=== PATIENT | female | born 1940 | race African-American/Black ===

== ENCOUNTER 2016-07-11 16:36 | Inpatient (IN) | payer MEDICARE, MEDICAID ==
[~2016-07-11] VITALS: Ht 167.6 cm; Wt 72.7 kg
[~2016-07-11 16:36] MED LIST: ALBU2.5V13 IH; BRIN8DRO OP; FLUT1DIS3 IH; Isosorb Dinit/Hydralazine Hcl PO; LATA2.5D2 EACHEYE; TIMO10DR30 EACHEYE
[2016-07-11 17:32] LABS: BASOPHILS % 1.3 % (0.0-2.0); EOSINOPHILS % 3.6 % (0.0-5.0); HEMATOCRIT. 36.1 % (36.0-48.0); HEMOGLOBIN. 11.4 g/dL (12.0-16.0); LYMPHOCYTES % 20.1 % (20.0-50.0); MEAN CORPUSCULAR HGB CONC 31.5 g/dL (31.0-37.0); MEAN CORPUSCULAR VOLUME 88.8 fL (81.0-99.0); MEAN PLATELET VOLUME 8.8 fl (7.4-10.4); MONOCYTES % 10.2 % (2.0-8.0); NEUTROPHILS % 64.8 % (40.0-76.0); PLATELET 286 x1000/uL (130-400); RED BLOOD CELL COUNT 4.07 mill/uL (4.2-5.4); RED CELL DISTRIBUTION WIDTH 14.3 % (11.6-14.6); WHITE BLOOD COUNT 10.1 x1000/uL (4.5-11.0)
[2016-07-11 17:35] LABS: DIFFERENTIAL COMMENT 1
[2016-07-11 17:38] LABS: CHLORIDE 102 mEq/L (98-107)
[2016-07-11 17:39] LABS: INDEX HEMOLYSI 1 (1-3); INDEX ICTERIC 1 (1-4); INDEX LIPEMIC 1 (1-3); INR 1.3; PROTHROMBIN TIME 13.6 sec
[2016-07-11 17:41] LABS: ALBUMIN 3.1 g/dL (3.4-5.0); ANION GAP 13; CALCIUM 8.8 mg/dL (8.5-10.1); CARBON DIOXIDE 27 mEq/L (21-32); UREA NITROGEN BLOOD 22 mg/dL (7-21)
[2016-07-11 17:43] LABS: ETHANOL BLOOD < 10 mg/dL
[2016-07-11 17:47] LABS: ALANINE AMINOTRANSFERASE 10 IU/L (13-61); eGFR 41 mL/min (>60)
[2016-07-11 17:49] LABS: NT PRO B-TYPE NATRIURETIC PEP 12924 pg/mL (5-125); TROPONIN I 0.22 ng/mL (0.00-0.04)
[2016-07-11] MEDS ORDERED: FUROSEMIDE 40MG/4ML VIAL IVP ONE (18:45)
[2016-07-11] MEDS ORDERED: ASPIRIN 81MG TABLET PO ONE (18:45)
[2016-07-11 20:06] LABS: CLARITY URINE CLEAR (CLEAR); COLOR URINE YELLOW (YELLOW); GLUCOSE URINE NEGATIVE (NEGATIVE); KETONES URINE NEGATIVE (NEGATIVE); LEUKOCYTE ESTERASE URINE NEGATIVE (NEGATIVE); NITRITE URINE NEGATIVE (NEGATIVE); OCCULT BLOOD URINE NEGATIVE (NEGATIVE); PH URINE 6.5 (4.5-8.0); PROTEIN URINE 1+ (NEGATIVE); SPECIFIC GRAVITY URINE 1.011 (1.005-1.030)
[2016-07-11 20:08] LABS: BACTERIA URINE NONE SEEN; CALCIUM PHOSPHATE CRYSTALS UR NONE SEEN /lpf; RBC URINE 0-2 /hpf (0-2); SQUAMOUS EPITHELIAL CELL URINE NONE SEEN /lpf (RARE/1+); WAXY CASTS URINE NONE SEEN /lpf; WBC URINE NONE SEEN /hpf (0-2); YEAST URINE NONE SEEN
[2016-07-11 20:16] LABS: *AMPHETAMINES SCREEN URINE NEGATIVE (NEGATIVE); *BARBITURATES SCREEN URINE NEGATIVE (NEGATIVE); *BENZODIAZEPINES SCREEN URINE NEGATIVE (NEGATIVE); *COCAINE SCREEN URINE NEGATIVE (NEGATIVE); CANNABINOID URINE SCREEN NEGATIVE (NEGATIVE); ECSTASY MDMA SCREEN URINE NEGATIVE (NEGATIVE); METHADONE URINE SCREEN NEGATIVE (NEGATIVE); OPIATES URINE SCREEN NEGATIVE (NEGATIVE); PHENCYCLIDINE URINE SCREEN NEGATIVE (NEGATIVE)
[2016-07-11 21:25] VITALS: BP 143/91
[2016-07-11 21:49] VITALS: BP 143/91
[2016-07-11] MEDS ORDERED: DEXTROSE 50% WATER 50ML SYRINGE IV PRN (23:15)
[2016-07-12] VITALS: BP 143/77
[2016-07-12 04:00] VITALS: BP 129/66
[2016-07-12 05:44] LABS: ALANINE AMINOTRANSFERASE 10 IU/L (13-61); ALBUMIN 2.9 g/dL (3.4-5.0); ANION GAP 13; CALCIUM 9.1 mg/dL (8.5-10.1); CARBON DIOXIDE 27 mEq/L (21-32); CHLORIDE 104 mEq/L (98-107); HDL CHOLESTEROL 33 mg/dL (40-59); INDEX HEMOLYSI 1 (1-3); INDEX ICTERIC 1 (1-4); INDEX LIPEMIC 1 (1-3); LDL CHOLESTEROL 88 mg/dL (5-100); TRIGLYCERIDE 96 mg/dL (0-150); UREA NITROGEN BLOOD 21 mg/dL (7-21); eGFR 48 mL/min (>60)
[2016-07-12 05:59] LABS: BASOPHILS % 0.7 % (0.0-2.0); EOSINOPHILS % 5.5 % (0.0-5.0); HEMOGLOBIN. 11.2 g/dL (12.0-16.0); LYMPHOCYTES % 24.9 % (20.0-50.0); MEAN CORPUSCULAR HEMOGLOBIN 28.6 pg (28.0-32.0); MEAN CORPUSCULAR VOLUME 89.1 fL (81.0-99.0); MONOCYTES % 12.5 % (2.0-8.0); NEUTROPHILS % 56.4 % (40.0-76.0); PLATELET 279 x1000/uL (130-400); RED BLOOD CELL COUNT 3.93 mill/uL (4.2-5.4); RED CELL DISTRIBUTION WIDTH 14.4 % (11.6-14.6); WHITE BLOOD COUNT 8.2 x1000/uL (4.5-11.0)
[2016-07-12] MEDS: BLOOD SUGAR DIAGNOSTIC STRIP TEST SCH ×4 (06:02→21:42)
[2016-07-12] MEDS: INSULIN LISPRO 100 UNITS/ML SUBCUT SCH ×4 (06:54→21:42)
[2016-07-12 08:00] VITALS: BP 131/72
[2016-07-12] MEDS: CARVEDILOL 12.5MG TABLET PO SCH ×2 (09:20→21:40)
[2016-07-12] MEDS: ASPIRIN 325MG EC TABLET PO SCH (09:20)
[2016-07-12] MEDS: DOCUSATE SODIUM 100MG CAPSULE PO SCH ×2 (09:20→17:03)
[2016-07-12] MEDS: FUROSEMIDE 40MG TABLET PO SCH (09:20)
[2016-07-12] MEDS: ISOSORB DINIT/HYDRALAZINE HCL 20/37.5MG TABLET PO SCH ×2 (09:20→21:39)
[2016-07-12] MEDS: ENOXAPARIN 30MG/0.3ML SYR SUBCUT SCH (09:20)
[2016-07-12] MEDS: POTASSIUM CHLORIDE 10MEQ TABLET SR PO SCH (09:20)
[2016-07-12] MEDS: TIMOLOL MALEATE 0.5% OPHTH DROPS 5ML EACHEYE SCH ×2 (09:21→16:58)
[2016-07-12] MEDS: BRIMONIDINE 0.2% OPHTH DROPS 5ML BOTHEYE SCH ×3 (09:21→16:58)
[2016-07-12] MEDS: DORZOLAMIDE 2% OPHTH 10 ML BOTTLE BOTHEYE SCH ×3 (09:21→16:58)
[2016-07-12 12:00] VITALS: BP 106/60
[2016-07-12 16:00] VITALS: BP 132/77
[2016-07-12 20:00] VITALS: BP 126/69
[2016-07-12] MEDS: LATANOPROST 0.005% OPHTH DROPS 2.5ML EACHEYE SCH (21:00)
[2016-07-12] MEDS: ATORVASTATIN CALCIUM 10MG TABLET PO SCH (21:40)
[2016-07-12] MEDS: INSULIN DETEMIR UD 100 UNITS/ML SYR SUBCUT SCH (21:50)
[2016-07-13] VITALS: BP 118/66
[2016-07-13 04:00] VITALS: BP 133/75
[2016-07-13] MEDS: INSULIN LISPRO 100 UNITS/ML SUBCUT SCH ×4 (07:15→20:40)
[2016-07-13] MEDS: BLOOD SUGAR DIAGNOSTIC STRIP TEST SCH ×4 (07:21→20:40)
[2016-07-13 08:00] VITALS: BP 127/72
[2016-07-13] MEDS: DORZOLAMIDE 2% OPHTH 10 ML BOTTLE BOTHEYE SCH ×3 (10:36→18:02)
[2016-07-13] MEDS: ASPIRIN 325MG EC TABLET PO SCH (10:38)
[2016-07-13] MEDS: CARVEDILOL 12.5MG TABLET PO SCH ×2 (10:38→20:39)
[2016-07-13] MEDS: POTASSIUM CHLORIDE 10MEQ TABLET SR PO SCH (10:39)
[2016-07-13] MEDS: DOCUSATE SODIUM 100MG CAPSULE PO SCH ×2 (10:39→16:24)
[2016-07-13] MEDS: FUROSEMIDE 40MG TABLET PO SCH (10:39)
[2016-07-13] MEDS: ISOSORB DINIT/HYDRALAZINE HCL 20/37.5MG TABLET PO SCH ×2 (10:39→20:39)
[2016-07-13] MEDS: TIMOLOL MALEATE 0.5% OPHTH DROPS 5ML EACHEYE SCH ×2 (10:41→18:02)
[2016-07-13] MEDS: ENOXAPARIN 30MG/0.3ML SYR SUBCUT SCH (10:41)
[2016-07-13] MEDS: BRIMONIDINE 0.2% OPHTH DROPS 5ML BOTHEYE SCH ×3 (10:45→18:02)
[2016-07-13 12:00] VITALS: BP 124/71
[2016-07-13 16:00] VITALS: BP 116/74
[2016-07-13 20:00] VITALS: BP 134/73
[2016-07-13] MEDS: ATORVASTATIN CALCIUM 10MG TABLET PO SCH (20:39)
[2016-07-13] MEDS: LATANOPROST 0.005% OPHTH DROPS 2.5ML EACHEYE SCH (22:33)
[2016-07-13] MEDS: INSULIN DETEMIR UD 100 UNITS/ML SYR SUBCUT SCH (22:37)
[2016-07-14] VITALS: BP 123/66
[2016-07-14 04:00] VITALS: BP 116/67
[2016-07-14] MEDS: BLOOD SUGAR DIAGNOSTIC STRIP TEST SCH ×4 (05:44→21:52)
[2016-07-14] MEDS: INSULIN LISPRO 100 UNITS/ML SUBCUT SCH ×4 (06:20→21:00)
[2016-07-14 08:00] VITALS: BP 120/62
[2016-07-14] MEDS: ASPIRIN 325MG EC TABLET PO SCH (08:44)
[2016-07-14] MEDS: TIMOLOL MALEATE 0.5% OPHTH DROPS 5ML EACHEYE SCH ×2 (08:44→17:14)
[2016-07-14] MEDS: DORZOLAMIDE 2% OPHTH 10 ML BOTTLE BOTHEYE SCH ×3 (08:44→17:14)
[2016-07-14] MEDS: POTASSIUM CHLORIDE 10MEQ TABLET SR PO SCH (08:45)
[2016-07-14] MEDS: FUROSEMIDE 40MG TABLET PO SCH (08:45)
[2016-07-14] MEDS: ENOXAPARIN 30MG/0.3ML SYR SUBCUT SCH (08:46)
[2016-07-14] MEDS: DOCUSATE SODIUM 100MG CAPSULE PO SCH ×2 (08:46→17:00)
[2016-07-14] MEDS: BRIMONIDINE 0.2% OPHTH DROPS 5ML BOTHEYE SCH ×3 (08:49→17:00)
[2016-07-14] MEDS: CARVEDILOL 12.5MG TABLET PO SCH ×2 (08:49→21:44)
[2016-07-14] MEDS: ISOSORB DINIT/HYDRALAZINE HCL 20/37.5MG TABLET PO SCH ×2 (08:49→21:43)
[2016-07-14] MEDS: ACETAMINOPHEN 325MG TABLET PO PRN ×2 (09:48→17:44)
[2016-07-14 12:00] VITALS: BP 121/76
[2016-07-14 16:00] VITALS: BP 112/56
[2016-07-14] MEDS ORDERED: AMIODARONE HCL 200 MG TABLET PO ONE (19:15)
[2016-07-14 20:00] VITALS: BP 118/67
[2016-07-14] MEDS: ATORVASTATIN CALCIUM 10MG TABLET PO SCH (21:44)
[2016-07-14] MEDS: LATANOPROST 0.005% OPHTH DROPS 2.5ML EACHEYE SCH (21:46)
[2016-07-14] MEDS: INSULIN DETEMIR UD 100 UNITS/ML SYR SUBCUT SCH (21:52)
[2016-07-14 23:29] LABS: MAGNESIUM 2.1 mg/dL (1.8-2.4)
[2016-07-15] VITALS: BP 119/70
[2016-07-15 04:00] VITALS: BP 126/69
[2016-07-15] MEDS: INSULIN LISPRO 100 UNITS/ML SUBCUT SCH ×4 (05:38→21:26)
[2016-07-15] MEDS: BLOOD SUGAR DIAGNOSTIC STRIP TEST SCH ×4 (05:39→21:00)
[2016-07-15 08:00] VITALS: BP_SYST 114; BP_SYST 120; BP_DIAS 60; BP_DIAS 73
[2016-07-15] MEDS: DOCUSATE SODIUM 100MG CAPSULE PO SCH ×2 (09:00→17:00)
[2016-07-15] MEDS ORDERED: AMIODARONE HCL 200 MG TABLET PO SCH ×2 (09:00)
[2016-07-15] MEDS: ENOXAPARIN 30MG/0.3ML SYR SUBCUT SCH (09:37)
[2016-07-15] MEDS: ISOSORB DINIT/HYDRALAZINE HCL 20/37.5MG TABLET PO SCH ×2 (09:37→21:24)
[2016-07-15] MEDS: ASPIRIN 325MG EC TABLET PO SCH (09:37)
[2016-07-15] MEDS: POTASSIUM CHLORIDE 10MEQ TABLET SR PO SCH (09:37)
[2016-07-15] MEDS: FUROSEMIDE 40MG TABLET PO SCH (09:37)
[2016-07-15] MEDS: CARVEDILOL 12.5MG TABLET PO SCH ×2 (09:38→21:24)
[2016-07-15] MEDS: DORZOLAMIDE 2% OPHTH 10 ML BOTTLE BOTHEYE SCH ×3 (09:39→17:22)
[2016-07-15] MEDS: BRIMONIDINE 0.2% OPHTH DROPS 5ML BOTHEYE SCH ×3 (09:39→17:00)
[2016-07-15] MEDS: TIMOLOL MALEATE 0.5% OPHTH DROPS 5ML EACHEYE SCH ×2 (09:41→17:22)
[2016-07-15 12:00] VITALS: BP 120/73
[2016-07-15 16:00] VITALS: BP 125/66
[2016-07-15 20:00] VITALS: BP 119/65
[2016-07-15] MEDS: ATORVASTATIN CALCIUM 10MG TABLET PO SCH (21:24)
[2016-07-15] MEDS: LATANOPROST 0.005% OPHTH DROPS 2.5ML EACHEYE SCH (21:26)
[2016-07-15] MEDS: INSULIN DETEMIR UD 100 UNITS/ML SYR SUBCUT SCH (21:26)
[2016-07-16 01:04] VITALS: BP 125/68
[2016-07-16 04:00] VITALS: BP 127/71
[2016-07-16] MEDS: BLOOD SUGAR DIAGNOSTIC STRIP TEST SCH ×4 (05:46→20:56)
[2016-07-16] MEDS: INSULIN LISPRO 100 UNITS/ML SUBCUT SCH ×4 (05:46→21:02)
[2016-07-16 05:58] LABS: HEMATOCRIT 30.3 % (36.0-48.0); HEMOGLOBIN 9.7 g/dL (12.0-16.0); MEAN CORPUSCULAR HGB CONC 32.1 g/dL (31.0-37.0); MEAN CORPUSCULAR VOLUME 87.2 fL (81.0-99.0); PLATELET 258 x1000/uL (130-400); RED BLOOD CELL COUNT 3.48 mill/uL (4.2-5.4); RED CELL DISTRIBUTION WIDTH 14.5 % (11.6-14.6); WHITE BLOOD COUNT 8.5 x1000/uL (4.5-11.0)
[2016-07-16 08:00] VITALS: BP 121/67
[2016-07-16] MEDS: DOCUSATE SODIUM 100MG CAPSULE PO SCH ×2 (08:43→16:56)
[2016-07-16] MEDS: TIMOLOL MALEATE 0.5% OPHTH DROPS 5ML EACHEYE SCH ×2 (08:55→17:00)
[2016-07-16] MEDS: DORZOLAMIDE 2% OPHTH 10 ML BOTTLE BOTHEYE SCH ×3 (08:55→17:00)
[2016-07-16] MEDS: BRIMONIDINE 0.2% OPHTH DROPS 5ML BOTHEYE SCH ×3 (08:56→16:56)
[2016-07-16] MEDS: CARVEDILOL 12.5MG TABLET PO SCH ×2 (08:57→20:38)
[2016-07-16] MEDS: ASPIRIN 325MG EC TABLET PO SCH (08:57)
[2016-07-16] MEDS: FUROSEMIDE 40MG TABLET PO SCH (08:57)
[2016-07-16] MEDS: POTASSIUM CHLORIDE 10MEQ TABLET SR PO SCH (08:57)
[2016-07-16] MEDS: ENOXAPARIN 30MG/0.3ML SYR SUBCUT SCH (08:58)
[2016-07-16 12:00] VITALS: BP 119/68
[2016-07-16] MEDS: ISOSORB DINIT/HYDRALAZINE HCL 20/37.5MG TABLET PO SCH ×2 (13:01→20:53)
[2016-07-16 16:00] VITALS: BP 108/55
[2016-07-16 20:00] VITALS: BP 112/64
[2016-07-16] MEDS: LATANOPROST 0.005% OPHTH DROPS 2.5ML EACHEYE SCH (20:53)
[2016-07-16] MEDS: ATORVASTATIN CALCIUM 10MG TABLET PO SCH (20:53)
[2016-07-16] MEDS: INSULIN DETEMIR UD 100 UNITS/ML SYR SUBCUT SCH (21:02)
[2016-07-17] VITALS: BP 123/72
[2016-07-17 04:00] VITALS: BP 105/57
[2016-07-17] MEDS: BLOOD SUGAR DIAGNOSTIC STRIP TEST SCH ×4 (06:19→20:28)
[2016-07-17] MEDS: INSULIN LISPRO 100 UNITS/ML SUBCUT SCH ×4 (06:19→20:28)
[2016-07-17 08:00] VITALS: BP 129/72
[2016-07-17] MEDS: BRIMONIDINE 0.2% OPHTH DROPS 5ML BOTHEYE SCH ×3 (09:00→17:00)
[2016-07-17] MEDS: DOCUSATE SODIUM 100MG CAPSULE PO SCH ×2 (09:00→17:00)
[2016-07-17] MEDS: ASPIRIN 325MG EC TABLET PO SCH (09:30)
[2016-07-17] MEDS: ISOSORB DINIT/HYDRALAZINE HCL 20/37.5MG TABLET PO SCH ×2 (09:31→20:20)
[2016-07-17] MEDS: POTASSIUM CHLORIDE 10MEQ TABLET SR PO SCH (09:31)
[2016-07-17] MEDS: CARVEDILOL 12.5MG TABLET PO SCH ×2 (09:31→20:18)
[2016-07-17] MEDS: FUROSEMIDE 40MG TABLET PO SCH (09:31)
[2016-07-17] MEDS: ENOXAPARIN 30MG/0.3ML SYR SUBCUT SCH (09:33)
[2016-07-17] MEDS: TIMOLOL MALEATE 0.5% OPHTH DROPS 5ML EACHEYE SCH ×2 (09:36→19:24)
[2016-07-17] MEDS: DORZOLAMIDE 2% OPHTH 10 ML BOTTLE BOTHEYE SCH ×3 (09:36→19:24)
[2016-07-17 12:00] VITALS: BP 125/71
[2016-07-17 16:00] VITALS: BP 119/71
[2016-07-17 20:00] VITALS: BP 118/70
[2016-07-17] MEDS ORDERED: DIPHENHYDRAMINE 50MG CAPSULE PO PRN (20:00)
[2016-07-17] MEDS ORDERED: DIPHENHYDRAMINE 50MG/ML VIAL IV NR (20:00)
[2016-07-17] MEDS: ATORVASTATIN CALCIUM 10MG TABLET PO SCH (20:19)
[2016-07-17] MEDS: LATANOPROST 0.005% OPHTH DROPS 2.5ML EACHEYE SCH (20:20)
[2016-07-17] MEDS: INSULIN DETEMIR UD 100 UNITS/ML SYR SUBCUT SCH (21:19)
[2016-07-18] VITALS: BP 121/71
[2016-07-18 04:00] VITALS: BP 121/69
[2016-07-18] MEDS: BLOOD SUGAR DIAGNOSTIC STRIP TEST SCH ×2 (06:15→11:21)
[2016-07-18] MEDS: INSULIN LISPRO 100 UNITS/ML SUBCUT SCH ×2 (06:15→11:21)
[2016-07-18 08:00] VITALS: BP 128/77
[2016-07-18] MEDS: DOCUSATE SODIUM 100MG CAPSULE PO SCH (09:00)
[2016-07-18] MEDS: ENOXAPARIN 30MG/0.3ML SYR SUBCUT SCH (09:35)
[2016-07-18] MEDS: FUROSEMIDE 40MG TABLET PO SCH (09:35)
[2016-07-18] MEDS: POTASSIUM CHLORIDE 10MEQ TABLET SR PO SCH (09:35)
[2016-07-18] MEDS: ASPIRIN 325MG EC TABLET PO SCH (09:35)
[2016-07-18] MEDS: ISOSORB DINIT/HYDRALAZINE HCL 20/37.5MG TABLET PO SCH (09:36)
[2016-07-18] MEDS: CARVEDILOL 12.5MG TABLET PO SCH (09:36)
[2016-07-18] MEDS: DORZOLAMIDE 2% OPHTH 10 ML BOTTLE BOTHEYE SCH ×2 (09:37→13:00)
[2016-07-18] MEDS: TIMOLOL MALEATE 0.5% OPHTH DROPS 5ML EACHEYE SCH (09:37)
[2016-07-18] MEDS: BRIMONIDINE 0.2% OPHTH DROPS 5ML BOTHEYE SCH ×2 (09:37→13:00)
[2016-07-18] MEDS ORDERED: AMIO200T39 PO (11:44)
[2016-07-18] MEDS ORDERED: ASPI-867 PO (11:44)
[2016-07-18 13:39] VITALS: BP 121/70
== END 2016-07-18 16:05 | disposition home or self-care (01) | DRG 64 ==
LOC: ER 16:48 → 5WST 19:20
PROVIDERS: ADMIT Internal Medicine Critical Care Medicine; ATTEND Internal Medicine Critical Care Medicine
PROC: 02HV33Z Insertion of Infusion Device into Superior Vena Cava, Percutaneous Approach (ICD-10-PCS; principal; 2016-07-15)
PROC: B5181ZA Fluoroscopy of Superior Vena Cava using Low Osmolar Contrast, Guidance (ICD-10-PCS; 2016-07-15)
DX: I63.139 Cerebral infarction due to embolism of unspecified carotid artery (principal); I50.43 Acute on chronic combined systolic (congestive) and diastolic (congestive) heart failure; I13.0 Hypertensive heart and chronic kidney disease with heart failure and stage 1 through stage 4 chronic kidney disease, or unspecified chronic kidney disease; J98.11 Atelectasis; I42.0 Dilated cardiomyopathy; I95.9 Hypotension, unspecified; E11.21 Type 2 diabetes mellitus with diabetic nephropathy; J44.9 Chronic obstructive pulmonary disease, unspecified; E11.22 Type 2 diabetes mellitus with diabetic chronic kidney disease; N18.3 Chronic kidney disease, stage 3 (moderate); M19.90 Unspecified osteoarthritis, unspecified site; H40.9 Unspecified glaucoma; I49.9 Cardiac arrhythmia, unspecified; K21.9 Gastro-esophageal reflux disease without esophagitis; Z79.4 Long term (current) use of insulin; Z95.810 Presence of automatic (implantable) cardiac defibrillator; Z88.0 Allergy status to penicillin; Z88.6 Allergy status to analgesic agent; Z88.5 Allergy status to narcotic agent; Z88.8 Allergy status to other drugs, medicaments and biological substances
CPT/HCPCS: 36415; 36569; 70450; 71010; 76937; 77001; 80048; 80053; 80061; 80305; 81001; 82962; 83036; 83735; 83880; 84443; 84484; 85025; 85027; 85610; 93005; 93880; 97112; 97116; 97162; 97166; 99285; C1725; C1893; G0482; J1200; J1650; J1815; J1940

== ENCOUNTER 2016-08-10 13:39 | Inpatient (IN) | payer MEDICARE, OTHER ==
[~2016-08-10] VITALS: Ht 167.6 cm; Wt 69.9 kg
[2016-08-10 12:00] VITALS: BP 145/93
[~2016-08-10 13:39] MED LIST changes: +AMIO200T39 PO; +ASPI-867 PO
[2016-08-10] MEDS ORDERED: LEVEMIR SUBCUT (15:04)
[2016-08-10] MEDS ORDERED: ROSU10TA PO (15:09)
[2016-08-10] MEDS ORDERED: XALAO EACHEYE (15:09)
[2016-08-10] MEDS ORDERED: BIDIL PO (15:09)
[2016-08-10] MEDS ORDERED: COR12 PO (15:09)
[2016-08-10] MEDS ORDERED: ALPHAGAN BOTHEYE (15:19)
[2016-08-10] MEDS ORDERED: FURO-151 PO (15:19)
[2016-08-10] MEDS ORDERED: TRUSOPT BOTHEYE (15:19)
[2016-08-10] MEDS ORDERED: TIMO10DR30 EACHEYE (15:19)
[2016-08-10] MEDS ORDERED: ENTRESTO PO (15:19)
[2016-08-10] MEDS ORDERED: POTASSIUM PO (15:19)
[2016-08-10] MEDS ORDERED: DOCU-138 PO (15:19)
[2016-08-10 16:00] VITALS: BP 135/76
[2016-08-10] MEDS ORDERED: MAGNESIUM/ALUMINUM HYDROXIDE/SIMETHICONE 30ML UDC PO PRN (16:45)
[2016-08-10] MEDS ORDERED: ACETAMINOPHEN 325MG TABLET PO PRN (16:45)
[2016-08-10] MEDS ORDERED: DIPHENHYDRAMINE 50MG/ML VIAL IV PRN (16:45)
[2016-08-10] MEDS ORDERED: CLONIDINE 0.1MG TABLET PO PRN (16:45)
[2016-08-10] MEDS ORDERED: DEXTROSE 50% WATER 50ML SYRINGE IV PRN (16:45)
[2016-08-10] MEDS ORDERED: IPRATROPIUM/ALBUTEROL 0.5-3(2.5)MG/3ML NEB INH PRN (16:45)
[2016-08-10] MEDS ORDERED: ONDANSETRON HCL 4MG/2ML VIAL IV PRN (16:45)
[2016-08-10 17:00] VITALS: BP 145/93
[2016-08-10] MEDS ORDERED: ALPHAGAN BOTHEYE SCH (17:00)
[2016-08-10] MEDS: BLOOD SUGAR DIAGNOSTIC STRIP TEST SCH ×2 (17:20→21:12)
[2016-08-10] MEDS ORDERED: MAGNESIUM HYDROXIDE 400MG/5ML 30ML UDC PO PRN (17:30)
[2016-08-10 17:46] LABS: ALANINE AMINOTRANSFERASE 16 IU/L (13-61); ALBUMIN 3.1 g/dL (3.4-5.0); ANION GAP 16; BASOPHILS % 0.7 % (0.0-2.0); CALCIUM 9.1 mg/dL (8.5-10.1); CARBON DIOXIDE 23 mEq/L (21-32); CHLORIDE 101 mEq/L (98-107); EOSINOPHILS % 2.3 % (0.0-5.0); HEMATOCRIT. 36.2 % (36.0-48.0); HEMOGLOBIN. 11.6 g/dL (12.0-16.0); INDEX HEMOLYSI 1 (1-3); INDEX ICTERIC 1 (1-4); INDEX LIPEMIC 1 (1-3); LYMPHOCYTES % 25.4 % (20.0-50.0); MEAN CORPUSCULAR HEMOGLOBIN 28.1 pg (28.0-32.0); MEAN CORPUSCULAR HGB CONC 31.9 g/dL (31.0-37.0); MEAN PLATELET VOLUME 9.8 fl (7.4-10.4); MONOCYTES % 9.8 % (2.0-8.0); NEUTROPHILS % 61.8 % (40.0-76.0); PLATELET 143 x1000/uL (130-400); RED BLOOD CELL COUNT 4.11 mill/uL (4.2-5.4); RED CELL DISTRIBUTION WIDTH 15.8 % (11.6-14.6); UREA NITROGEN BLOOD 29 mg/dL (7-21); eGFR 29 mL/min (>60)
[2016-08-10] MEDS: INSULIN LISPRO 100 UNITS/ML SUBCUT SCH ×2 (17:50→21:13)
[2016-08-10 20:00] VITALS: BP 142/81
[2016-08-10] MEDS ORDERED: MEDICATION NOT ON FORMULARY EA (Rosuvastatin Calcium (Crestor) 1 TAB) PO SCH (21:00)
[2016-08-10] MEDS: AMIODARONE HCL 200 MG TABLET PO SCH (21:04)
[2016-08-10] MEDS: ATORVASTATIN CALCIUM 20MG TABLET PO SCH (21:04)
[2016-08-10] MEDS: LATANOPROST 0.005% OPHTH DROPS 2.5ML EACHEYE SCH (21:05)
[2016-08-10] MEDS: CARVEDILOL 12.5MG TABLET PO SCH (21:05)
[2016-08-10] MEDS: SODIUM CHLORIDE 0.9% INJ 3ML FLUSH IVF SCH (21:05)
[2016-08-10] MEDS: TIMOLOL MALEATE 0.5% OPHTH DROPS 5ML EACHEYE SCH (21:05)
[2016-08-10] MEDS: DOCUSATE SODIUM 100MG CAPSULE PO SCH (21:05)
[2016-08-10] MEDS: ENTRESTO PO SCH (21:06)
[2016-08-10] MEDS: INSULIN DETEMIR UD 100 UNITS/ML SYR SUBCUT SCH (21:14)
[2016-08-10 21:30] LABS: CLARITY URINE TURBID (CLEAR); COLOR URINE DARK YELLOW (YELLOW); GLUCOSE URINE NEGATIVE (NEGATIVE); KETONES URINE TRACE (NEGATIVE); LEUKOCYTE ESTERASE URINE 3+ (NEGATIVE); NITRITE URINE NEGATIVE (NEGATIVE); OCCULT BLOOD URINE 3+ (NEGATIVE); PH URINE 5.5 (4.5-8.0); PROTEIN URINE 2+ (NEGATIVE); SPECIFIC GRAVITY URINE 1.017 (1.005-1.030)
[2016-08-10 21:50] LABS: BACTERIA URINE 2+; RBC URINE TNTC /hpf (0-2); SQUAMOUS EPITHELIAL CELL URINE 1+ /lpf (RARE/1+); WBC URINE TNTC /hpf (0-2)
[2016-08-10] MEDS ORDERED: ISOSORB DINIT PO SCH (22:00)
[2016-08-10] MEDS ORDERED: [UNRECOGNIZED DRUG - OTHER] PO SCH (22:00)
[2016-08-10] MEDS: DORZOLAMIDE 2% OPHTH 10 ML BOTTLE BOTHEYE SCH (22:18)
[2016-08-11] VITALS: BP 134/84
[2016-08-11 04:00] VITALS: BP 130/81
[2016-08-11] MEDS: SODIUM CHLORIDE 0.9% INJ 3ML FLUSH IVF SCH ×3 (06:05→21:10)
[2016-08-11] MEDS: BLOOD SUGAR DIAGNOSTIC STRIP TEST SCH ×4 (06:29→21:10)
[2016-08-11] MEDS: INSULIN LISPRO 100 UNITS/ML SUBCUT SCH ×4 (07:50→22:21)
[2016-08-11 08:00] VITALS: BP 120/70
[2016-08-11] MEDS: ISOSORB DINIT/HYDRALAZINE HCL 20/37.5MG TABLET PO SCH ×2 (09:00→17:49)
[2016-08-11] MEDS ORDERED: FUROSEMIDE 40MG TABLET PO SCH (09:00)
[2016-08-11] MEDS: DOCUSATE SODIUM 100MG CAPSULE PO SCH ×2 (09:00→17:00)
[2016-08-11] MEDS: POTASSIUM CHLORIDE 10MEQ TABLET SR PO SCH (09:40)
[2016-08-11] MEDS: AMIODARONE HCL 200 MG TABLET PO SCH ×2 (09:40→21:07)
[2016-08-11] MEDS: ENTRESTO PO SCH ×2 (09:41→21:08)
[2016-08-11] MEDS: DORZOLAMIDE 2% OPHTH 10 ML BOTTLE BOTHEYE SCH ×3 (09:41→21:09)
[2016-08-11] MEDS: CARVEDILOL 12.5MG TABLET PO SCH ×2 (09:41→21:08)
[2016-08-11] MEDS: TIMOLOL MALEATE 0.5% OPHTH DROPS 5ML EACHEYE SCH ×2 (09:42→21:09)
[2016-08-11] MEDS: ENOXAPARIN 30MG/0.3ML SYR SUBCUT SCH (09:43)
[2016-08-11] MEDS: ASPIRIN 325MG EC TABLET PO SCH (09:47)
[2016-08-11 12:11] VITALS: BP 132/79
[2016-08-11] MEDS ORDERED: GENTAMICIN 120MG PREMIX 100 ML IV NR (13:30)
[2016-08-11] MEDS: FUROSEMIDE 40MG/4ML VIAL IVP SCH (13:57)
[2016-08-11 16:00] VITALS: BP 133/80
[2016-08-11 20:00] VITALS: BP 112/67
[2016-08-11] MEDS: ZOLPIDEM TARTRATE 5MG TABLET PO PRN (21:07)
[2016-08-11] MEDS: ATORVASTATIN CALCIUM 20MG TABLET PO SCH (21:07)
[2016-08-11] MEDS: LATANOPROST 0.005% OPHTH DROPS 2.5ML EACHEYE SCH (21:08)
[2016-08-11] MEDS: INSULIN DETEMIR UD 100 UNITS/ML SYR SUBCUT SCH (22:19)
[2016-08-12] VITALS: BP 108/66
[2016-08-12 04:00] VITALS: BP 116/68
[2016-08-12] MEDS: SODIUM CHLORIDE 0.9% INJ 3ML FLUSH IVF SCH ×3 (05:57→22:08)
[2016-08-12] MEDS: BLOOD SUGAR DIAGNOSTIC STRIP TEST SCH ×4 (05:57→21:00)
[2016-08-12 08:00] VITALS: BP 105/56
[2016-08-12] MEDS: DORZOLAMIDE 2% OPHTH 10 ML BOTTLE BOTHEYE SCH ×3 (08:28→17:52)
[2016-08-12] MEDS: TIMOLOL MALEATE 0.5% OPHTH DROPS 5ML EACHEYE SCH ×2 (08:28→22:02)
[2016-08-12] MEDS: ENOXAPARIN 30MG/0.3ML SYR SUBCUT SCH (08:29)
[2016-08-12] MEDS: FUROSEMIDE 40MG/4ML VIAL IVP SCH (08:35)
[2016-08-12] MEDS: ISOSORB DINIT/HYDRALAZINE HCL 20/37.5MG TABLET PO SCH ×2 (08:35→17:52)
[2016-08-12] MEDS: ASPIRIN 325MG EC TABLET PO SCH (08:35)
[2016-08-12] MEDS: ENTRESTO PO SCH ×2 (08:35→22:04)
[2016-08-12] MEDS: AMIODARONE HCL 200 MG TABLET PO SCH ×2 (08:36→22:04)
[2016-08-12] MEDS: CARVEDILOL 12.5MG TABLET PO SCH ×2 (08:36→22:03)
[2016-08-12] MEDS: POTASSIUM CHLORIDE 10MEQ TABLET SR PO SCH (08:36)
[2016-08-12] MEDS: DOCUSATE SODIUM 100MG CAPSULE PO SCH ×2 (08:36→17:52)
[2016-08-12] MEDS: INSULIN LISPRO 100 UNITS/ML SUBCUT SCH ×4 (08:46→22:08)
[2016-08-12 12:00] VITALS: BP 119/70
[2016-08-12] MEDS: GENTAMICIN 120MG PREMIX 100 ML IV SCH (12:00)
[2016-08-12] MEDS ORDERED: IPRATROPIUM/ALBUTEROL 0.5-3(2.5)MG/3ML NEB HHN PRN (15:30)
[2016-08-12 16:00] VITALS: BP 128/79
[2016-08-12 16:54] LABS: CALCIUM 8.9 mg/dL (8.5-10.1)
[2016-08-12 20:00] VITALS: BP 115/64
[2016-08-12] MEDS: BUDESONIDE 0.5MG/2ML NEB HHN SCH (20:12)
[2016-08-12] MEDS: IPRATROPIUM/ALBUTEROL 0.5-3(2.5)MG/3ML NEB HHN SCH (20:12)
[2016-08-12] MEDS: LATANOPROST 0.005% OPHTH DROPS 2.5ML EACHEYE SCH (21:59)
[2016-08-12] MEDS: ZOLPIDEM TARTRATE 5MG TABLET PO PRN (22:04)
[2016-08-12] MEDS: ATORVASTATIN CALCIUM 20MG TABLET PO SCH (22:04)
[2016-08-12] MEDS: BRIMONIDINE 0.2% OPHTH DROPS 5ML BOTHEYE SCH (22:51)
[2016-08-13] VITALS: BP 108/58
[2016-08-13] MEDS: IPRATROPIUM/ALBUTEROL 0.5-3(2.5)MG/3ML NEB HHN SCH ×4 (03:11→21:03)
[2016-08-13 04:00] VITALS: BP 102/55
[2016-08-13] MEDS: SODIUM CHLORIDE 0.9% INJ 3ML FLUSH IVF SCH ×3 (06:00→21:57)
[2016-08-13] MEDS: BLOOD SUGAR DIAGNOSTIC STRIP TEST SCH ×4 (06:16→21:56)
[2016-08-13] MEDS: INSULIN LISPRO 100 UNITS/ML SUBCUT SCH ×4 (06:30→21:00)
[2016-08-13 08:00] VITALS: BP 112/55
[2016-08-13] MEDS: BUDESONIDE 0.5MG/2ML NEB HHN SCH ×2 (08:04→21:03)
[2016-08-13] MEDS: ASPIRIN 325MG EC TABLET PO SCH (08:50)
[2016-08-13] MEDS: POTASSIUM CHLORIDE 10MEQ TABLET SR PO SCH (08:50)
[2016-08-13] MEDS: TIMOLOL MALEATE 0.5% OPHTH DROPS 5ML EACHEYE SCH ×2 (08:50→21:57)
[2016-08-13] MEDS: AMIODARONE HCL 200 MG TABLET PO SCH ×2 (08:50→21:56)
[2016-08-13] MEDS: DORZOLAMIDE 2% OPHTH 10 ML BOTTLE BOTHEYE SCH ×3 (08:50→17:58)
[2016-08-13] MEDS: ENOXAPARIN 30MG/0.3ML SYR SUBCUT SCH (08:51)
[2016-08-13] MEDS: FUROSEMIDE 40MG/4ML VIAL IVP SCH (08:51)
[2016-08-13] MEDS: DOCUSATE SODIUM 100MG CAPSULE PO SCH ×2 (08:58→18:01)
[2016-08-13] MEDS: ENTRESTO PO SCH ×2 (09:00→21:56)
[2016-08-13] MEDS: CARVEDILOL 12.5MG TABLET PO SCH ×2 (09:00→21:55)
[2016-08-13] MEDS: ISOSORB DINIT/HYDRALAZINE HCL 20/37.5MG TABLET PO SCH ×2 (09:00→18:00)
[2016-08-13 12:00] VITALS: BP 108/62
[2016-08-13] MEDS: GENTAMICIN 120MG PREMIX 100 ML IV SCH (14:51)
[2016-08-13 16:00] VITALS: BP 125/72
[2016-08-13 20:00] VITALS: BP 112/63
[2016-08-13] MEDS: BRIMONIDINE 0.2% OPHTH DROPS 5ML BOTHEYE SCH ×2 (21:00→21:58)
[2016-08-13] MEDS: ATORVASTATIN CALCIUM 20MG TABLET PO SCH (21:55)
[2016-08-13] MEDS: ZOLPIDEM TARTRATE 5MG TABLET PO PRN (21:55)
[2016-08-13] MEDS: LATANOPROST 0.005% OPHTH DROPS 2.5ML EACHEYE SCH (21:57)
[2016-08-13] MEDS ORDERED: INSULIN DETEMIR UD 100 UNITS/ML SYR SUBCUT SCH (23:30)
[2016-08-14] VITALS: BP 112/69
[2016-08-14] MEDS: IPRATROPIUM/ALBUTEROL 0.5-3(2.5)MG/3ML NEB HHN SCH ×4 (02:23→21:17)
[2016-08-14 04:09] VITALS: BP 117/67
[2016-08-14] MEDS: SODIUM CHLORIDE 0.9% INJ 3ML FLUSH IVF SCH ×3 (05:47→21:04)
[2016-08-14] MEDS: BLOOD SUGAR DIAGNOSTIC STRIP TEST SCH ×4 (06:29→20:52)
[2016-08-14 06:30] LABS: BASOPHILS % 0.8 % (0.0-2.0); EOSINOPHILS % 6.3 % (0.0-5.0); HEMATOCRIT. 33.7 % (36.0-48.0); HEMOGLOBIN. 10.8 g/dL (12.0-16.0); MEAN CORPUSCULAR HEMOGLOBIN 28.2 pg (28.0-32.0); MEAN CORPUSCULAR HGB CONC 32.2 g/dL (31.0-37.0); MEAN CORPUSCULAR VOLUME 87.7 fL (81.0-99.0); MONOCYTES % 11.3 % (2.0-8.0); NEUTROPHILS % 49.6 % (40.0-76.0); PLATELET 158 x1000/uL (130-400); RED BLOOD CELL COUNT 3.84 mill/uL (4.2-5.4); RED CELL DISTRIBUTION WIDTH 16.2 % (11.6-14.6); WHITE BLOOD COUNT 6.2 x1000/uL (4.5-11.0)
[2016-08-14 06:55] LABS: CALCIUM 9.4 mg/dL (8.5-10.1); GENTAMICIN RANDOM 3.5 ug/mL
[2016-08-14] MEDS: INSULIN LISPRO 100 UNITS/ML SUBCUT SCH ×4 (07:47→20:53)
[2016-08-14 08:00] VITALS: BP 124/81
[2016-08-14] MEDS: BUDESONIDE 0.5MG/2ML NEB HHN SCH ×2 (08:12→21:17)
[2016-08-14] MEDS: FUROSEMIDE 40MG/4ML VIAL IVP SCH (09:10)
[2016-08-14] MEDS: ENOXAPARIN 30MG/0.3ML SYR SUBCUT SCH (09:11)
[2016-08-14] MEDS: ENTRESTO PO SCH ×2 (09:11→21:03)
[2016-08-14] MEDS: DOCUSATE SODIUM 100MG CAPSULE PO SCH ×2 (09:12→17:57)
[2016-08-14] MEDS: ISOSORB DINIT/HYDRALAZINE HCL 20/37.5MG TABLET PO SCH ×2 (09:12→17:57)
[2016-08-14] MEDS: DORZOLAMIDE 2% OPHTH 10 ML BOTTLE BOTHEYE SCH ×3 (09:12→17:56)
[2016-08-14] MEDS: CARVEDILOL 12.5MG TABLET PO SCH ×2 (09:12→21:03)
[2016-08-14] MEDS: POTASSIUM CHLORIDE 10MEQ TABLET SR PO SCH (09:12)
[2016-08-14] MEDS: AMIODARONE HCL 200 MG TABLET PO SCH ×2 (09:12→21:03)
[2016-08-14] MEDS: ASPIRIN 325MG EC TABLET PO SCH (09:16)
[2016-08-14] MEDS: TIMOLOL MALEATE 0.5% OPHTH DROPS 5ML EACHEYE SCH ×2 (09:17→21:03)
[2016-08-14 12:00] VITALS: BP 102/56
[2016-08-14 16:00] VITALS: BP 104/60
[2016-08-14 20:00] VITALS: BP 112/67
[2016-08-14] MEDS: BRIMONIDINE 0.2% OPHTH DROPS 5ML BOTHEYE SCH (21:00)
[2016-08-14] MEDS: ATORVASTATIN CALCIUM 20MG TABLET PO SCH (21:03)
[2016-08-14] MEDS: LATANOPROST 0.005% OPHTH DROPS 2.5ML EACHEYE SCH (21:03)
[2016-08-14] MEDS: ZOLPIDEM TARTRATE 5MG TABLET PO PRN (21:41)
[2016-08-14] MEDS ORDERED: INSULIN DETEMIR UD 100 UNITS/ML SYR SUBCUT SCH (22:00)
[2016-08-15] VITALS: BP 124/76
[2016-08-15] MEDS: IPRATROPIUM/ALBUTEROL 0.5-3(2.5)MG/3ML NEB HHN SCH ×2 (02:00→09:17)
[2016-08-15 04:00] VITALS: BP 116/65
[2016-08-15] MEDS: SODIUM CHLORIDE 0.9% INJ 3ML FLUSH IVF SCH ×2 (05:32→13:07)
[2016-08-15] MEDS: BLOOD SUGAR DIAGNOSTIC STRIP TEST SCH ×2 (06:21→12:22)
[2016-08-15] MEDS: INSULIN LISPRO 100 UNITS/ML SUBCUT SCH ×2 (07:50→12:22)
[2016-08-15 08:00] VITALS: BP 107/62
[2016-08-15] MEDS: ISOSORB DINIT/HYDRALAZINE HCL 20/37.5MG TABLET PO SCH (08:55)
[2016-08-15] MEDS: CARVEDILOL 12.5MG TABLET PO SCH (08:55)
[2016-08-15] MEDS ORDERED: GENTAMICIN 120MG PREMIX 100 ML IV SCH (09:00)
[2016-08-15] MEDS: AMIODARONE HCL 200 MG TABLET PO SCH (09:00)
[2016-08-15] MEDS: POTASSIUM CHLORIDE 10MEQ TABLET SR PO SCH (09:05)
[2016-08-15] MEDS: ASPIRIN 325MG EC TABLET PO SCH (09:05)
[2016-08-15] MEDS: DOCUSATE SODIUM 100MG CAPSULE PO SCH (09:05)
[2016-08-15] MEDS: FUROSEMIDE 40MG/4ML VIAL IVP SCH (09:05)
[2016-08-15] MEDS: ENTRESTO PO SCH (09:05)
[2016-08-15] MEDS: DORZOLAMIDE 2% OPHTH 10 ML BOTTLE BOTHEYE SCH ×2 (09:06→13:07)
[2016-08-15] MEDS: ENOXAPARIN 30MG/0.3ML SYR SUBCUT SCH (09:07)
[2016-08-15] MEDS: TIMOLOL MALEATE 0.5% OPHTH DROPS 5ML EACHEYE SCH (09:07)
[2016-08-15] MEDS: BUDESONIDE 0.5MG/2ML NEB HHN SCH (09:16)
[2016-08-15 12:00] VITALS: BP 114/67
[2016-08-15 14:18] VITALS: BP 114/67
== END 2016-08-15 16:50 | disposition home health service (06) | DRG 291 ==
LOC: 6WST 13:39
PROVIDERS: ADMIT Internal Medicine; ATTEND Internal Medicine
DX: I13.0 Hypertensive heart and chronic kidney disease with heart failure and stage 1 through stage 4 chronic kidney disease, or unspecified chronic kidney disease (principal); I50.43 Acute on chronic combined systolic (congestive) and diastolic (congestive) heart failure; J96.20 Acute and chronic respiratory failure, unspecified whether with hypoxia or hypercapnia; N39.0 Urinary tract infection, site not specified; E46 Unspecified protein-calorie malnutrition; J98.11 Atelectasis; I42.0 Dilated cardiomyopathy; J44.9 Chronic obstructive pulmonary disease, unspecified; E11.21 Type 2 diabetes mellitus with diabetic nephropathy; E11.22 Type 2 diabetes mellitus with diabetic chronic kidney disease; I27.2 Other secondary pulmonary hypertension; N18.9 Chronic kidney disease, unspecified; D64.9 Anemia, unspecified; H40.9 Unspecified glaucoma; E11.42 Type 2 diabetes mellitus with diabetic polyneuropathy; R20.0 Anesthesia of skin; R26.9 Unspecified abnormalities of gait and mobility; B96.1 Klebsiella pneumoniae [K. pneumoniae] as the cause of diseases classified elsewhere; K57.90 Diverticulosis of intestine, part unspecified, without perforation or abscess without bleeding; I25.2 Old myocardial infarction; K21.9 Gastro-esophageal reflux disease without esophagitis; K22.70 Barrett's esophagus without dysplasia; Z82.49 Family history of ischemic heart disease and other diseases of the circulatory system; Z83.3 Family history of diabetes mellitus; Z95.810 Presence of automatic (implantable) cardiac defibrillator; Z68.24 Body mass index [BMI] 24.0-24.9, adult; Z88.0 Allergy status to penicillin; Z88.6 Allergy status to analgesic agent; Z91.041 Radiographic dye allergy status
CPT/HCPCS: 36415; 71010; 80048; 80053; 80170; 81001; 82962; 83036; 85025; 87077; 87086; 87186; 93005; 93970; 94640; 94664; 97163; 97166; C1893; J1200; J1580; J1650; J1815; J1940; J7050; J7620; J7626

== ENCOUNTER 2016-12-29 23:14 | Inpatient (IN) | payer MEDICARE, OTHER ==
[~2016-12-29] VITALS: Ht 165.1 cm; Wt 67.2 kg
[~2016-12-29 23:14] MED LIST changes: -ALBU2.5V13 IH; +ALPHAGAN BOTHEYE; +AMI2 PO; -AMIO200T39 PO; +BIDIL PO; -BRIN8DRO OP; +COR12 PO; +DOCU-138 PO; +ENTRESTO PO; -FLUT1DIS3 IH; +FURO-151 PO; -LATA2.5D2 EACHEYE; +LEVEMIR SUBCUT; +POTASSIUM PO; +ROSU10TA PO; +TRUSOPT BOTHEYE; +XALAO EACHEYE
[2016-12-30] MEDS ORDERED: IPRATROPIUM BROMIDE (0.02%) 0.5MG/2.5ML NEB HHN STA (01:10)
[2016-12-30] MEDS ORDERED: ALBUTEROL (0.083%) 2.5MG/3ML NEB HHN STA (01:10)
[2016-12-30] MEDS ORDERED: ASPIRIN 81MG TABLET PO STA (01:10)
[2016-12-30] MEDS ORDERED: METHYLPREDNISOLONE SOD SUCC 125 MG/2 ML VIAL IV STA (01:10)
[2016-12-30] MEDS ORDERED: LEVOFLOXACIN 750MG PREMIX 150 ML IV ONE (01:15)
[2016-12-30] MEDS ORDERED: DIPHENHYDRAMINE 50MG/ML VIAL IV ONE (01:15)
[2016-12-30] MEDS ORDERED: SODIUM CHLORIDE 0.9% 1000ML BAG (SEPSIS BOLUS) IV ONE (01:15)
[2016-12-30] MEDS ORDERED: ALBUTEROL (0.5%) 2.5MG/0.5ML NEB HHN ONE (01:28)
[2016-12-30 01:39] LABS: BASOPHILS % 0.9 % (0.0-2.0); EOSINOPHILS % 3.6 % (0.0-5.0); HEMATOCRIT. 33.6 % (36.0-48.0); HEMOGLOBIN. 10.8 g/dL (12.0-16.0); LYMPHOCYTES % 22.6 % (20.0-50.0); MEAN CORPUSCULAR HEMOGLOBIN 30.4 pg (28.0-32.0); MEAN CORPUSCULAR VOLUME 94.4 fL (81.0-99.0); MEAN PLATELET VOLUME 8.9 fl (7.4-10.4); MONOCYTES % 10.5 % (2.0-8.0); NEUTROPHILS % 62.4 % (40.0-76.0); PLATELET 181 x1000/uL (130-400); RED BLOOD CELL COUNT 3.56 mill/uL (4.2-5.4); RED CELL DISTRIBUTION WIDTH 15.1 % (11.6-14.6)
[2016-12-30 01:49] LABS: INR 1.4; PARTIAL THROMBOPLASTIN TIME 28.5 sec (23.4-31.0); PROTHROMBIN TIME 14.7 sec (9.4-11.6)
[2016-12-30 01:56] LABS: CARBON DIOXIDE 25 mEq/L (21-32); CHLORIDE 99 mEq/L (98-107); TROPONIN I 0.09 ng/mL (0.00-0.04)
[2016-12-30] MEDS ORDERED: FUROSEMIDE 100MG/10ML VIAL IV STA (02:27)
[2016-12-30] MEDS ORDERED: DEXTROSE 50% WATER 50ML SYRINGE IV ONE (02:30)
[2016-12-30] MEDS ORDERED: SODIUM BICARBONATE 8.4% 1 MEQ/ML 50ML SYR IV ONE (02:30)
[2016-12-30] MEDS ORDERED: INSULIN REGULAR (HUMULIN R) 300UNITS/3ML IV ONE (02:30)
[2016-12-30] MEDS ORDERED: SODIUM POLYSTYRENE SULFONATE 15 G/60 ML BOT PO ONE (02:30)
[2016-12-30 06:35] VITALS: BP 146/71
[2016-12-30 06:36] VITALS: BP 146/71
[2016-12-30 08:00] VITALS: BP 144/77
[2016-12-30] MEDS ORDERED: ALBUTEROL (0.083%) 2.5MG/3ML NEB HHN PRN (10:45)
[2016-12-30] MEDS: ENOXAPARIN 30MG/0.3ML SYR SUBCUT SCH (11:51)
[2016-12-30] MEDS: METHYLPREDNISOLONE SOD SUCC 40 MG/ML VIAL IV SCH ×2 (11:51→18:25)
[2016-12-30 12:00] VITALS: BP 146/74
[2016-12-30] MEDS ORDERED: ALBUTEROL (0.083%) 2.5MG/3ML NEB HHN SCH (12:00)
[2016-12-30] MEDS ORDERED: IPRATROPIUM/ALBUTEROL 0.5-3(2.5)MG/3ML NEB HHN SCH (12:00)
[2016-12-30] MEDS ORDERED: ALBUTEROL (0.5%) 2.5MG/0.5ML NEB HHN PRN (14:30)
[2016-12-30] MEDS ORDERED: DEXTROSE 50% WATER 50ML SYRINGE IV PRN (14:45)
[2016-12-30] MEDS: THEOPHYLLINE ANHYDROUS 80 MG/15 ML 120ML PO SCH ×2 (15:18→21:26)
[2016-12-30 16:39] VITALS: BP 141/73
[2016-12-30] MEDS: ALBUTEROL (0.083%) 2.5MG/3ML NEB HHN SCH ×2 (16:42→21:27)
[2016-12-30] MEDS: BLOOD SUGAR DIAGNOSTIC STRIP TEST SCH ×2 (17:43→21:00)
[2016-12-30] MEDS: INSULIN LISPRO 100 UNITS/ML SUBCUT SCH ×2 (18:25→21:00)
[2016-12-30 20:17] VITALS: BP_SYST 139; BP_SYST 149; BP_DIAS 62; BP_DIAS 71
[2016-12-30] MEDS ORDERED: ENOXAPARIN 40MG/0.4ML SYR SUBCUT SCH (21:00)
[2016-12-30] MEDS: ISOSORB DINIT/HYDRALAZINE HCL 20/37.5MG TABLET PO SCH (21:25)
[2016-12-31 00:05] VITALS: BP 139/77
[2016-12-31] MEDS: ALBUTEROL (0.083%) 2.5MG/3ML NEB HHN SCH ×6 (00:31→20:27)
[2016-12-31] MEDS: METHYLPREDNISOLONE SOD SUCC 40 MG/ML VIAL IV SCH ×3 (02:17→18:40)
[2016-12-31 04:00] VITALS: BP 128/68
[2016-12-31] MEDS: THEOPHYLLINE ANHYDROUS 80 MG/15 ML 120ML PO SCH ×3 (05:41→21:01)
[2016-12-31] MEDS: BLOOD SUGAR DIAGNOSTIC STRIP TEST SCH ×4 (07:39→20:48)
[2016-12-31 08:00] VITALS: BP 172/67
[2016-12-31] MEDS: INSULIN LISPRO 100 UNITS/ML SUBCUT SCH ×4 (09:15→20:59)
[2016-12-31] MEDS: ISOSORB DINIT/HYDRALAZINE HCL 20/37.5MG TABLET PO SCH ×2 (09:16→20:58)
[2016-12-31 09:17] LABS: BASOPHILS % 0.1 % (0.0-2.0); HEMOGLOBIN. 10.1 g/dL (12.0-16.0); LYMPHOCYTES % 15.6 % (20.0-50.0); MEAN CORPUSCULAR HEMOGLOBIN 30.4 pg (28.0-32.0); MEAN CORPUSCULAR VOLUME 93.7 fL (81.0-99.0); MEAN PLATELET VOLUME 9.7 fl (7.4-10.4); MONOCYTES % 5.6 % (2.0-8.0); NEUTROPHILS % 78.7 % (40.0-76.0); PLATELET 168 x1000/uL (130-400); RED BLOOD CELL COUNT 3.31 mill/uL (4.2-5.4); RED CELL DISTRIBUTION WIDTH 14.8 % (11.6-14.6)
[2016-12-31 09:39] LABS: CARBON DIOXIDE 22 mEq/L (21-32); CHLORIDE 100 mEq/L (98-107)
[2016-12-31] MEDS: ENOXAPARIN 30MG/0.3ML SYR SUBCUT SCH (11:37)
[2016-12-31 12:00] VITALS: BP 146/77
[2016-12-31] MEDS ORDERED: CLONIDINE 0.1MG TABLET PO SCH (12:00)
[2016-12-31] MEDS ORDERED: CLONIDINE 0.1MG TABLET PO PRN (12:00)
[2016-12-31 16:00] VITALS: BP 148/86
[2016-12-31 20:00] VITALS: BP 153/76
[2017-01-01] VITALS (7 sets, daily range): BP systolic 123–148; BP diastolic 45–82
[2017-01-01] MEDS: METHYLPREDNISOLONE SOD SUCC 40 MG/ML VIAL IV SCH ×3 (03:19→18:04)
[2017-01-01] MEDS: BLOOD SUGAR DIAGNOSTIC STRIP TEST SCH ×4 (06:17→20:52)
[2017-01-01] MEDS: THEOPHYLLINE ANHYDROUS 80 MG/15 ML 120ML PO SCH (06:17)
[2017-01-01] MEDS: ALBUTEROL (0.083%) 2.5MG/3ML NEB HHN SCH ×4 (08:18→20:41)
[2017-01-01] MEDS: ISOSORB DINIT/HYDRALAZINE HCL 20/37.5MG TABLET PO SCH ×2 (08:52→20:49)
[2017-01-01] MEDS: INSULIN LISPRO 100 UNITS/ML SUBCUT SCH ×4 (08:57→21:07)
[2017-01-01] MEDS: ENOXAPARIN 30MG/0.3ML SYR SUBCUT SCH (11:24)
[2017-01-01] MEDS: ENTRESTO PO SCH (11:28)
[2017-01-01] MEDS ORDERED: DIPHENHYDRAMINE 50MG/ML VIAL IV PRN (21:00)
[2017-01-02] VITALS (7 sets, daily range): BP systolic 97–147; BP diastolic 48–78
[2017-01-02] MEDS: METHYLPREDNISOLONE SOD SUCC 40 MG/ML VIAL IV SCH ×2 (03:53→12:15)
[2017-01-02] MEDS: ALBUTEROL (0.083%) 2.5MG/3ML NEB HHN SCH ×6 (04:00→20:25)
[2017-01-02] MEDS: BLOOD SUGAR DIAGNOSTIC STRIP TEST SCH ×4 (06:40→20:55)
[2017-01-02] MEDS: ISOSORB DINIT/HYDRALAZINE HCL 20/37.5MG TABLET PO SCH ×2 (08:33→21:07)
[2017-01-02] MEDS: INSULIN LISPRO 100 UNITS/ML SUBCUT SCH ×4 (08:33→21:08)
[2017-01-02] MEDS: ENTRESTO PO SCH (08:34)
[2017-01-02] MEDS ORDERED: P50 PO (08:57)
[2017-01-02] MEDS ORDERED: ALBU2.5V13 IH (08:58)
[2017-01-02] MEDS ORDERED: POTASSIUM CHLORIDE 20MEQ TABLET SR PO SCH (10:00)
[2017-01-02] MEDS ORDERED: FUROSEMIDE 40MG/4ML VIAL IVP NR (10:35)
[2017-01-02 10:42] LABS: BG BASE EXCESS -1.2 mmol/L (-2.0-2.0); BG CARBOXYHEMOGLOBIN 0.3 % (0.5-1.5); BG FRACTION INSPIRED OXYGEN 21; BG METHEMOGLOBIN 0.6 % (0.0-1.5); BG OXYHEMOGLOBIN 96.1 % (94.0-97.0); BG PCO2 31.9 mmHg (35.0-45.0); BG PH 7.456 (7.350-7.450); BG PO2 92.2 mmHg (75.0-100.0); BG SAMPLE SITE RIGHT RADIAL; BG TOTAL HEMOGLOBIN 11.6 g/dL (12.0-18.0); BG VENT MODE ROOM AIR
[2017-01-02] MEDS: ENOXAPARIN 30MG/0.3ML SYR SUBCUT SCH (12:14)
[2017-01-02 13:39] LABS: CARBON DIOXIDE 25 mEq/L (21-32); CHLORIDE 99 mEq/L (98-107)
[2017-01-02] MEDS: DORZOLAMIDE 2% OPHTH 10 ML BOTTLE BOTHEYE SCH ×2 (14:18→20:52)
[2017-01-02] MEDS: BRIMONIDINE 0.2% OPHTH DROPS 5ML BOTHEYE SCH ×2 (14:19→20:52)
[2017-01-02] MEDS: DOCUSATE SODIUM 100MG CAPSULE PO SCH (17:24)
[2017-01-02] MEDS: TIMOLOL MALEATE 0.25% OPHTH DROPS 5ML EACHEYE SCH (20:50)
[2017-01-02] MEDS ORDERED: LATANOPROST 0.005% OPHTH DROPS 2.5ML BOTHEYE SCH (21:00)
[2017-01-02] MEDS ORDERED: ATORVASTATIN CALCIUM 10MG TABLET PO SCH (21:00)
[2017-01-02] MEDS: CARVEDILOL 12.5MG TABLET PO SCH (21:09)
[2017-01-02] MEDS ORDERED: INSULIN DETEMIR UD 100 UNITS/ML SYR SUBCUT SCH (22:00)
[2017-01-03] MEDS: METHYLPREDNISOLONE SOD SUCC 40 MG/ML VIAL IV SCH (00:16)
[2017-01-03] MEDS: ALBUTEROL (0.083%) 2.5MG/3ML NEB HHN SCH ×3 (00:26→08:54)
[2017-01-03 04:00] VITALS: BP 128/75
[2017-01-03] MEDS: BLOOD SUGAR DIAGNOSTIC STRIP TEST SCH (05:40)
[2017-01-03] MEDS: INSULIN LISPRO 100 UNITS/ML SUBCUT SCH (05:41)
[2017-01-03] MEDS: DORZOLAMIDE 2% OPHTH 10 ML BOTTLE BOTHEYE SCH (05:41)
[2017-01-03] MEDS: BRIMONIDINE 0.2% OPHTH DROPS 5ML BOTHEYE SCH (05:41)
[2017-01-03 08:00] VITALS: BP 126/71
[2017-01-03] MEDS ORDERED: FUROSEMIDE 40MG TABLET PO SCH (09:00)
[2017-01-03] MEDS ORDERED: FUROSEMIDE 40MG/4ML VIAL IVP SCH (09:00)
[2017-01-03] MEDS ORDERED: ASPIRIN 325MG EC TABLET PO SCH (09:00)
[2017-01-03] MEDS ORDERED: POTASSIUM CHLORIDE 10MEQ TABLET SR PO SCH (09:00)
[2017-01-03] MEDS: DOCUSATE SODIUM 100MG CAPSULE PO SCH (09:18)
[2017-01-03] MEDS: CARVEDILOL 12.5MG TABLET PO SCH (09:19)
[2017-01-03] MEDS: ISOSORB DINIT/HYDRALAZINE HCL 20/37.5MG TABLET PO SCH (09:19)
[2017-01-03] MEDS: ENTRESTO PO SCH (09:20)
[2017-01-03] MEDS: TIMOLOL MALEATE 0.25% OPHTH DROPS 5ML EACHEYE SCH (09:21)
[2017-01-03 10:59] VITALS: BP 129/79
== END 2017-01-03 12:40 | disposition home or self-care (01) | DRG 291 ==
LOC: ER 23:14 → 7WST 12-30 04:14 → EDBEDREQ 12-30 04:18 → ER 12-30 06:10 → EDBEDREQ 12-30 06:36 → CANBEDREQ 12-30 08:10
PROVIDERS: ADMIT Family Medicine; ATTEND Family Medicine
DX: I13.0 Hypertensive heart and chronic kidney disease with heart failure and stage 1 through stage 4 chronic kidney disease, or unspecified chronic kidney disease (principal); I50.43 Acute on chronic combined systolic (congestive) and diastolic (congestive) heart failure; J96.00 Acute respiratory failure, unspecified whether with hypoxia or hypercapnia; J44.1 Chronic obstructive pulmonary disease with (acute) exacerbation; I42.0 Dilated cardiomyopathy; E11.21 Type 2 diabetes mellitus with diabetic nephropathy; H40.9 Unspecified glaucoma; K21.9 Gastro-esophageal reflux disease without esophagitis; Z95.810 Presence of automatic (implantable) cardiac defibrillator; E87.5 Hyperkalemia; D63.8 Anemia in other chronic diseases classified elsewhere; E11.22 Type 2 diabetes mellitus with diabetic chronic kidney disease; E87.6 Hypokalemia; I25.2 Old myocardial infarction; N18.3 Chronic kidney disease, stage 3 (moderate); Z86.73 Personal history of transient ischemic attack (TIA), and cerebral infarction without residual deficits; Z88.9 Allergy status to unspecified drugs, medicaments and biological substances; Z95.0 Presence of cardiac pacemaker; Z88.0 Allergy status to penicillin; Z88.8 Allergy status to other drugs, medicaments and biological substances; Z91.041 Radiographic dye allergy status; Z79.82 Long term (current) use of aspirin; Z79.899 Other long term (current) drug therapy; E11.65 Type 2 diabetes mellitus with hyperglycemia
CPT/HCPCS: 36415; 36600; 71010; 76700; 80053; 80198; 82375; 82805; 82962; 83605; 83690; 83735; 83880; 84484; 85025; 85610; 85730; 87040; 93005; 94640; 96374; 96375; 97110; 97116; 97162; 99285; J1200; J1650; J1815; J1940; J1956; J2920; J2930; J3490; J7030; J7040; J7050; J7611; J7620

== ENCOUNTER 2017-01-04 16:34 | Inpatient (IN) | payer MEDICARE, OTHER ==
[~2017-01-04] VITALS: Ht 162.6 cm; Wt 67.1 kg
[~2017-01-04 16:34] MED LIST changes: +ALBU2.5V13 IH; +P50 PO
[2017-01-04 19:26] LABS: HEMATOCRIT. 40.1 % (36.0-48.0); HEMOGLOBIN. 13.1 g/dL (12.0-16.0); INR 1.5; MEAN CORPUSCULAR HEMOGLOBIN 30.2 pg (28.0-32.0); MEAN CORPUSCULAR VOLUME 92.6 fL (81.0-99.0); MEAN PLATELET VOLUME 9.3 fl (7.4-10.4); PLATELET 205 x1000/uL (130-400); PROTHROMBIN TIME 15.3 sec (9.4-11.6); RED BLOOD CELL COUNT 4.33 mill/uL (4.2-5.4)
[2017-01-04 19:32] LABS: CARBON DIOXIDE 24 mEq/L (21-32); CHLORIDE 104 mEq/L (98-107)
[2017-01-04 19:35] LABS: TROPONIN I 0.17 ng/mL (0.00-0.04)
[2017-01-04 20:11] LABS: PLATELET ESTIMATE NORMAL
[2017-01-04] MEDS ORDERED: IBUPROFEN 600MG TABLET PO PRN (20:45)
[2017-01-04] MEDS ORDERED: FUROSEMIDE 40MG/4ML VIAL IV ONE (20:45)
[2017-01-04] MEDS ORDERED: ACETAMINOPHEN 325MG TABLET PO PRN (20:45)
[2017-01-04] MEDS ORDERED: ASPIRIN 81MG TABLET PO ONE (20:45)
[2017-01-05] VITALS (9 sets, daily range): BP systolic 92–151; BP diastolic 45–70
[2017-01-05] MEDS ORDERED: METHYLPREDNISOLONE SOD SUCC 40 MG/ML VIAL IV SCH
[2017-01-05] MEDS ORDERED: IPRATROPIUM/ALBUTEROL 0.5-3(2.5)MG/3ML NEB INH PRN
[2017-01-05] MEDS ORDERED: MAGNESIUM/ALUMINUM HYDROXIDE/SIMETHICONE 30ML UDC PO PRN
[2017-01-05] MEDS ORDERED: DIPHENHYDRAMINE 50MG/ML VIAL IV PRN
[2017-01-05] MEDS ORDERED: IPRATROPIUM/ALBUTEROL 0.5-3(2.5)MG/3ML NEB HHN SCH
[2017-01-05] MEDS ORDERED: ACETAMINOPHEN 325MG TABLET PO PRN
[2017-01-05] MEDS ORDERED: ONDANSETRON HCL 4MG/2ML VIAL IV PRN
[2017-01-05] MEDS ORDERED: CLONIDINE 0.1MG TABLET PO PRN
[2017-01-05] MEDS ORDERED: GUAIFENESIN 200MG/10ML SUGAR FREE UDC PO PRN
[2017-01-05] MEDS ORDERED: DEXTROSE 50% WATER 50ML SYRINGE IV PRN
[2017-01-05] MEDS: BRIMONIDINE 0.2% OPHTH DROPS 5ML BOTHEYE SCH ×3 (05:43→22:00)
[2017-01-05] MEDS: SODIUM CHLORIDE 0.9% INJ 3ML FLUSH IVF SCH ×3 (05:43→22:53)
[2017-01-05] MEDS: BLOOD SUGAR DIAGNOSTIC STRIP TEST SCH ×4 (05:43→22:09)
[2017-01-05] MEDS: DORZOLAMIDE 2% OPHTH 10 ML BOTTLE BOTHEYE SCH ×3 (05:43→22:00)
[2017-01-05] MEDS: INSULIN LISPRO 100 UNITS/ML SUBCUT SCH ×4 (08:17→22:42)
[2017-01-05] MEDS: DOCUSATE SODIUM 100MG CAPSULE PO SCH ×2 (08:19→17:38)
[2017-01-05] MEDS: ASPIRIN 325MG EC TABLET PO SCH (08:19)
[2017-01-05] MEDS: POTASSIUM CHLORIDE 10MEQ TABLET SR PO SCH (08:20)
[2017-01-05] MEDS: CARVEDILOL 12.5MG TABLET PO SCH ×2 (08:28→22:51)
[2017-01-05] MEDS: TIMOLOL MALEATE 0.25% OPHTH DROPS 5ML EACHEYE SCH ×2 (08:29→21:00)
[2017-01-05] MEDS ORDERED: FUROSEMIDE 40MG/4ML VIAL IVP SCH (09:00)
[2017-01-05] MEDS ORDERED: TIMOLOL MALEATE 0.5% OPHTH DROPS 5ML EACHEYE SCH (09:00)
[2017-01-05] MEDS ORDERED: ENOXAPARIN 40MG/0.4ML SYR SUBCUT SCH (09:00)
[2017-01-05] MEDS ORDERED: SACU1TAB PO (16:47)
[2017-01-05] MEDS: FUROSEMIDE 40MG/4ML VIAL IVP SCH (17:00)
[2017-01-05] MEDS ORDERED: ENOXAPARIN 30MG/0.3ML SYR SUBCUT SCH (19:00)
[2017-01-05] MEDS: MILRINONE 20MG-DEXT 5% PREMIX 100 ML IV SCH (21:57)
[2017-01-05] MEDS: LATANOPROST 0.005% OPHTH DROPS 2.5ML BOTHEYE SCH (22:04)
[2017-01-05] MEDS: INSULIN DETEMIR UD 100 UNITS/ML SYR SUBCUT SCH (22:41)
[2017-01-05] MEDS: TRAMADOL 50MG TABLET PO PRN (23:13)
[2017-01-06] VITALS (17 sets, daily range): BP systolic 97–134; BP diastolic 37–70
[2017-01-06] MEDS: BRIMONIDINE 0.2% OPHTH DROPS 5ML BOTHEYE SCH ×4 (05:09→21:19)
[2017-01-06] MEDS: DORZOLAMIDE 2% OPHTH 10 ML BOTTLE BOTHEYE SCH ×4 (05:09→21:20)
[2017-01-06] MEDS: SODIUM CHLORIDE 0.9% INJ 3ML FLUSH IVF SCH ×3 (05:34→21:30)
[2017-01-06] MEDS: BLOOD SUGAR DIAGNOSTIC STRIP TEST SCH ×4 (06:10→21:28)
[2017-01-06] MEDS: INSULIN LISPRO 100 UNITS/ML SUBCUT SCH ×4 (07:20→21:29)
[2017-01-06] MEDS: FUROSEMIDE 40MG/4ML VIAL IVP SCH ×2 (08:51→17:40)
[2017-01-06] MEDS: ASPIRIN 325MG EC TABLET PO SCH (08:51)
[2017-01-06] MEDS: POTASSIUM CHLORIDE 10MEQ TABLET SR PO SCH (08:51)
[2017-01-06] MEDS: CARVEDILOL 12.5MG TABLET PO SCH ×2 (08:51→21:28)
[2017-01-06] MEDS: DOCUSATE SODIUM 100MG CAPSULE PO SCH ×2 (08:51→17:40)
[2017-01-06] MEDS: Sacubitril/Valsartan (Entresto 24 mg-26 mg Tablet) PO SCH (08:52)
[2017-01-06] MEDS: TIMOLOL MALEATE 0.25% OPHTH DROPS 5ML EACHEYE SCH ×2 (08:54→21:00)
[2017-01-06] MEDS: MILRINONE 20MG-DEXT 5% PREMIX 100 ML IV SCH ×2 (09:43→23:19)
[2017-01-06] MEDS: TRAMADOL 50MG TABLET PO PRN (11:10)
[2017-01-06] MEDS: ENOXAPARIN 30MG/0.3ML SYR SUBCUT SCH (14:07)
[2017-01-06] MEDS ORDERED: SODIUM BICARBONATE 4.2% 5 MEQ/10 ML DISP.SYRIN IV ONE (14:36)
[2017-01-06] MEDS ORDERED: LIDOCAINE HCL 1% 20ML VIAL (Pyxis) INJ ONE (14:36)
[2017-01-06] MEDS: LATANOPROST 0.005% OPHTH DROPS 2.5ML BOTHEYE SCH (21:28)
[2017-01-06] MEDS: INSULIN DETEMIR UD 100 UNITS/ML SYR SUBCUT SCH (21:29)
[2017-01-07] VITALS (12 sets, daily range): BP systolic 91–134; BP diastolic 40–63
[2017-01-07] MEDS: BRIMONIDINE 0.2% OPHTH DROPS 5ML BOTHEYE SCH ×3 (06:00→21:36)
[2017-01-07] MEDS: DORZOLAMIDE 2% OPHTH 10 ML BOTTLE BOTHEYE SCH ×3 (06:00→21:36)
[2017-01-07] MEDS: SODIUM CHLORIDE 0.9% INJ 3ML FLUSH IVF SCH ×3 (06:12→21:36)
[2017-01-07] MEDS: BLOOD SUGAR DIAGNOSTIC STRIP TEST SCH ×4 (06:21→21:33)
[2017-01-07] MEDS: INSULIN LISPRO 100 UNITS/ML SUBCUT SCH ×4 (06:21→21:42)
[2017-01-07] MEDS: ASPIRIN 325MG EC TABLET PO SCH (08:22)
[2017-01-07] MEDS: ENOXAPARIN 30MG/0.3ML SYR SUBCUT SCH (08:22)
[2017-01-07] MEDS: TIMOLOL MALEATE 0.25% OPHTH DROPS 5ML EACHEYE SCH ×2 (08:22→21:00)
[2017-01-07] MEDS: DOCUSATE SODIUM 100MG CAPSULE PO SCH ×2 (08:22→16:46)
[2017-01-07] MEDS: Sacubitril/Valsartan (Entresto 24 mg-26 mg Tablet) PO SCH (08:22)
[2017-01-07] MEDS: FUROSEMIDE 40MG/4ML VIAL IVP SCH ×2 (08:22→16:46)
[2017-01-07] MEDS: CARVEDILOL 12.5MG TABLET PO SCH ×2 (08:23→21:37)
[2017-01-07] MEDS: POTASSIUM CHLORIDE 10MEQ TABLET SR PO SCH (08:23)
[2017-01-07] MEDS: MILRINONE 20MG-DEXT 5% PREMIX 100 ML IV SCH (16:15)
[2017-01-07] MEDS: LATANOPROST 0.005% OPHTH DROPS 2.5ML BOTHEYE SCH (21:29)
[2017-01-07] MEDS: INSULIN DETEMIR UD 100 UNITS/ML SYR SUBCUT SCH (21:42)
[2017-01-07] MEDS ORDERED: ZOLPIDEM TARTRATE 5MG TABLET PO PRN (22:45)
[2017-01-08] VITALS (17 sets, daily range): BP systolic 102–131; BP diastolic 43–79
[2017-01-08] MEDS: SODIUM CHLORIDE 0.9% INJ 3ML FLUSH IVF SCH ×2 (05:56→22:13)
[2017-01-08] MEDS: BLOOD SUGAR DIAGNOSTIC STRIP TEST SCH ×4 (05:58→20:50)
[2017-01-08] MEDS: MILRINONE 20MG-DEXT 5% PREMIX 100 ML IV SCH (06:41)
[2017-01-08] MEDS: INSULIN LISPRO 100 UNITS/ML SUBCUT SCH ×4 (07:20→20:50)
[2017-01-08] MEDS: POTASSIUM CHLORIDE 10MEQ TABLET SR PO SCH (09:29)
[2017-01-08] MEDS: FUROSEMIDE 40MG/4ML VIAL IVP SCH (09:29)
[2017-01-08] MEDS: Sacubitril/Valsartan (Entresto 24 mg-26 mg Tablet) PO SCH (09:29)
[2017-01-08] MEDS: ASPIRIN 325MG EC TABLET PO SCH (09:29)
[2017-01-08] MEDS: DOCUSATE SODIUM 100MG CAPSULE PO SCH ×2 (09:29→17:16)
[2017-01-08] MEDS: CARVEDILOL 12.5MG TABLET PO SCH ×2 (09:30→20:50)
[2017-01-08] MEDS: TIMOLOL MALEATE 0.25% OPHTH DROPS 5ML EACHEYE SCH (09:31)
[2017-01-08 11:58] LABS: BASOPHILS % 0.3 % (0.0-2.0); HEMATOCRIT. 32.7 % (36.0-48.0); HEMOGLOBIN. 10.8 g/dL (12.0-16.0); LYMPHOCYTES % 15.9 % (20.0-50.0); MEAN CORPUSCULAR HEMOGLOBIN 31.2 pg (28.0-32.0); MEAN PLATELET VOLUME 9.2 fl (7.4-10.4); MONOCYTES % 13.3 % (2.0-8.0); NEUTROPHILS % 68.5 % (40.0-76.0); PLATELET 179 x1000/uL (130-400); RED BLOOD CELL COUNT 3.48 mill/uL (4.2-5.4); RED CELL DISTRIBUTION WIDTH 14.6 % (11.6-14.6)
[2017-01-08] MEDS: ENOXAPARIN 30MG/0.3ML SYR SUBCUT SCH (12:15)
[2017-01-08] MEDS: FUROSEMIDE 40MG TABLET PO SCH (20:49)
[2017-01-08] MEDS: LATANOPROST 0.005% OPHTH DROPS 2.5ML BOTHEYE SCH (20:50)
[2017-01-08] MEDS: INSULIN DETEMIR UD 100 UNITS/ML SYR SUBCUT SCH (22:06)
[2017-01-09] VITALS (9 sets, daily range): BP systolic 65–134; BP diastolic 29–65
[2017-01-09] MEDS: SODIUM CHLORIDE 0.9% INJ 3ML FLUSH IVF SCH (06:28)
[2017-01-09] MEDS: BLOOD SUGAR DIAGNOSTIC STRIP TEST SCH ×2 (06:28→11:42)
[2017-01-09] MEDS: INSULIN LISPRO 100 UNITS/ML SUBCUT SCH ×2 (07:20→11:42)
[2017-01-09] MEDS: FUROSEMIDE 40MG TABLET PO SCH (08:56)
[2017-01-09] MEDS: POTASSIUM CHLORIDE 10MEQ TABLET SR PO SCH (08:56)
[2017-01-09] MEDS: ASPIRIN 325MG EC TABLET PO SCH (08:56)
[2017-01-09] MEDS: DOCUSATE SODIUM 100MG CAPSULE PO SCH (08:56)
[2017-01-09] MEDS: CARVEDILOL 12.5MG TABLET PO SCH (08:57)
[2017-01-09] MEDS: TIMOLOL MALEATE 0.25% OPHTH DROPS 5ML EACHEYE SCH (08:57)
[2017-01-09] MEDS: Sacubitril/Valsartan (Entresto 24 mg-26 mg Tablet) PO SCH (09:05)
[2017-01-09] MEDS: ENOXAPARIN 30MG/0.3ML SYR SUBCUT SCH (09:06)
== END 2017-01-09 14:40 | DRG 314 ==
LOC: ER 17:48 → 6WST 20:44 → ENRESERV 21:35 → EDBEDREQ 23:17 → 3WST 01-05 20:30
PROVIDERS: ADMIT Internal Medicine; ATTEND Internal Medicine
PROC: 02HV33Z Insertion of Infusion Device into Superior Vena Cava, Percutaneous Approach (ICD-10-PCS; principal; 2017-01-06)
PROC: B548ZZA Ultrasonography of Superior Vena Cava, Guidance (ICD-10-PCS; 2017-01-06)
DX: I95.9 Hypotension, unspecified (principal); I50.43 Acute on chronic combined systolic (congestive) and diastolic (congestive) heart failure; J96.00 Acute respiratory failure, unspecified whether with hypoxia or hypercapnia; E43 Unspecified severe protein-calorie malnutrition; I13.0 Hypertensive heart and chronic kidney disease with heart failure and stage 1 through stage 4 chronic kidney disease, or unspecified chronic kidney disease; I42.0 Dilated cardiomyopathy; E87.1 Hypo-osmolality and hyponatremia; J44.1 Chronic obstructive pulmonary disease with (acute) exacerbation; E11.22 Type 2 diabetes mellitus with diabetic chronic kidney disease; I27.2 Other secondary pulmonary hypertension; D64.9 Anemia, unspecified; N18.9 Chronic kidney disease, unspecified; K80.20 Calculus of gallbladder without cholecystitis without obstruction; R26.9 Unspecified abnormalities of gait and mobility; E78.5 Hyperlipidemia, unspecified; H40.9 Unspecified glaucoma; K21.9 Gastro-esophageal reflux disease without esophagitis; K22.70 Barrett's esophagus without dysplasia; Z82.49 Family history of ischemic heart disease and other diseases of the circulatory system; Z83.3 Family history of diabetes mellitus; Z88.0 Allergy status to penicillin; Z88.8 Allergy status to other drugs, medicaments and biological substances; Z95.810 Presence of automatic (implantable) cardiac defibrillator; Z88.6 Allergy status to analgesic agent; Z91.041 Radiographic dye allergy status; Z79.82 Long term (current) use of aspirin; Z79.899 Other long term (current) drug therapy; Z68.25 Body mass index [BMI] 25.0-25.9, adult; Z79.51 Long term (current) use of inhaled steroids
CPT/HCPCS: 36415; 36569; 71010; 74176; 76937; 80048; 80053; 82962; 83735; 83880; 84484; 85025; 85610; 93005; 93970; 96374; 97116; 97162; 99285; C1725; C1893; J1650; J1815; J1940; J2260; J3490

== ENCOUNTER 2017-01-09 14:45 | Inpatient (IN) | payer MEDICARE, OTHER ==
[~2017-01-09] VITALS: Ht 162.6 cm; Wt 67.1 kg
[~2017-01-09 14:45] MED LIST changes: +SACU1TAB PO
[2017-01-09 16:00] VITALS: BP 126/50
[2017-01-09] MEDS ORDERED: IPRATROPIUM/ALBUTEROL 0.5-3(2.5)MG/3ML NEB HHN PRN (17:30)
[2017-01-09] MEDS: ENTRESTO PO SCH (17:30)
[2017-01-09] MEDS ORDERED: DEXTROSE 50% WATER 50ML SYRINGE IV PRN (17:30)
[2017-01-09] MEDS ORDERED: DIPHENHYDRAMINE 25MG CAPSULE PO PRN (18:00)
[2017-01-09] MEDS ORDERED: CLONIDINE 0.1MG TABLET PO PRN (18:00)
[2017-01-09] MEDS ORDERED: GUAIFENESIN 200MG/10ML SUGAR FREE UDC PO PRN (18:00)
[2017-01-09] MEDS ORDERED: MAGNESIUM/ALUMINUM HYDROXIDE/SIMETHICONE 30ML UDC PO PRN (18:00)
[2017-01-09] MEDS ORDERED: ACETAMINOPHEN 325MG TABLET PO PRN (18:00)
[2017-01-09] MEDS ORDERED: ONDANSETRON HCL 4MG/2ML VIAL IV PRN (18:24)
[2017-01-09 20:00] VITALS: BP 142/54
[2017-01-09] MEDS: IPRATROPIUM/ALBUTEROL 0.5-3(2.5)MG/3ML NEB HHN SCH (20:51)
[2017-01-09] MEDS: CARVEDILOL 12.5MG TABLET PO SCH (21:00)
[2017-01-09] MEDS: TIMOLOL MALEATE 0.5% OPHTH DROPS 5ML EACHEYE SCH (21:00)
[2017-01-09] MEDS ORDERED: ZOLPIDEM TARTRATE 5MG TABLET PO PRN (21:00)
[2017-01-09] MEDS: LATANOPROST 0.005% OPHTH DROPS 2.5ML BOTHEYE SCH (21:13)
[2017-01-09] MEDS: BLOOD SUGAR DIAGNOSTIC STRIP TEST SCH (21:16)
[2017-01-09] MEDS: FUROSEMIDE 40MG TABLET PO SCH (21:16)
[2017-01-09] MEDS: INSULIN DETEMIR UD 100 UNITS/ML SYR SUBCUT SCH (21:18)
[2017-01-09] MEDS: INSULIN LISPRO 100 UNITS/ML SUBCUT SCH (21:19)
[2017-01-09] MEDS: SODIUM CHLORIDE 0.9% INJ 3ML FLUSH IVF SCH (21:24)
[2017-01-10 07:01] LABS: HEMATOCRIT. 34.7 % (36.0-48.0); HEMOGLOBIN. 11.4 g/dL (12.0-16.0); MEAN CORPUSCULAR HEMOGLOBIN 30.7 pg (28.0-32.0); MEAN CORPUSCULAR VOLUME 94.1 fL (81.0-99.0); PLATELET 179 x1000/uL (130-400); RED BLOOD CELL COUNT 3.69 mill/uL (4.2-5.4); RED CELL DISTRIBUTION WIDTH 14.9 % (11.6-14.6)
[2017-01-10] MEDS: BLOOD SUGAR DIAGNOSTIC STRIP TEST SCH ×4 (07:04→21:34)
[2017-01-10] MEDS: INSULIN LISPRO 100 UNITS/ML SUBCUT SCH ×4 (07:05→21:57)
[2017-01-10] MEDS: SODIUM CHLORIDE 0.9% INJ 3ML FLUSH IVF SCH ×3 (07:07→21:59)
[2017-01-10 07:38] LABS: CARBON DIOXIDE 26 mEq/L (21-32); CHLORIDE 104 mEq/L (98-107); PREALBUMIN 21.3 mg/dL (20.0-40.0)
[2017-01-10] MEDS: IPRATROPIUM/ALBUTEROL 0.5-3(2.5)MG/3ML NEB HHN SCH ×4 (07:40→20:59)
[2017-01-10 08:00] VITALS: BP 135/54
[2017-01-10] MEDS: LACTULOSE 20G/30ML UDC PO SCH ×3 (08:40→16:33)
[2017-01-10] MEDS: FUROSEMIDE 40MG TABLET PO SCH ×2 (08:41→21:31)
[2017-01-10] MEDS: DOCUSATE SODIUM 100MG CAPSULE PO SCH ×2 (08:41→16:54)
[2017-01-10] MEDS: TIMOLOL MALEATE 0.5% OPHTH DROPS 5ML EACHEYE SCH (08:41)
[2017-01-10] MEDS: CARVEDILOL 12.5MG TABLET PO SCH ×2 (08:42→21:31)
[2017-01-10] MEDS: ENTRESTO PO SCH (08:42)
[2017-01-10] MEDS: ASPIRIN 325MG EC TABLET PO SCH (08:42)
[2017-01-10] MEDS: POTASSIUM CHLORIDE 10MEQ TABLET SR PO SCH (08:42)
[2017-01-10] MEDS: ENOXAPARIN 30MG/0.3ML SYR SUBCUT SCH (08:43)
[2017-01-10] MEDS ORDERED: DOCUSATE SODIUM 100MG CAPSULE PO SCH (09:00)
[2017-01-10] MEDS: TIMOLOL MALEATE 0.25% OPHTH DROPS 5ML EACHEYE SCH ×2 (11:27→21:00)
[2017-01-10 16:13] LABS: PLATELET ESTIMATE NORMAL
[2017-01-10] MEDS ORDERED: ACETAMINOPHEN 325MG TABLET PO PRN (18:00)
[2017-01-10 20:00] VITALS: BP 139/55
[2017-01-10] MEDS: POLYETHYLENE GLYCOL 3350 (17GM) 1 DOSE PACK PO SCH (21:00)
[2017-01-10] MEDS: LATANOPROST 0.005% OPHTH DROPS 2.5ML BOTHEYE SCH (21:32)
[2017-01-10] MEDS: INSULIN DETEMIR UD 100 UNITS/ML SYR SUBCUT SCH (21:58)
[2017-01-11] MEDS: SODIUM CHLORIDE 0.9% INJ 3ML FLUSH IVF SCH ×3 (06:38→21:01)
[2017-01-11] MEDS: BLOOD SUGAR DIAGNOSTIC STRIP TEST SCH ×4 (06:38→21:08)
[2017-01-11 07:19] LABS: BASOPHILS % 0.4 % (0.0-2.0); EOSINOPHILS % 2.3 % (0.0-5.0); HEMATOCRIT. 34.5 % (36.0-48.0); HEMOGLOBIN. 11.2 g/dL (12.0-16.0); LYMPHOCYTES % 15.7 % (20.0-50.0); MEAN CORPUSCULAR HEMOGLOBIN 30.8 pg (28.0-32.0); MEAN PLATELET VOLUME 9.4 fl (7.4-10.4); MONOCYTES % 12.2 % (2.0-8.0); NEUTROPHILS % 69.4 % (40.0-76.0); PLATELET 181 x1000/uL (130-400); RED BLOOD CELL COUNT 3.63 mill/uL (4.2-5.4); RED CELL DISTRIBUTION WIDTH 15.2 % (11.6-14.6)
[2017-01-11 07:27] LABS: PHOSPHORUS 3.2 mg/dL (2.5-4.9)
[2017-01-11] MEDS: IPRATROPIUM/ALBUTEROL 0.5-3(2.5)MG/3ML NEB HHN SCH ×4 (07:48→20:48)
[2017-01-11 07:54] LABS: FOLIC ACID (FOLATE) SERUM 13.5 ng/mL (>5.38)
[2017-01-11 08:00] VITALS: BP 138/66
[2017-01-11] MEDS: FUROSEMIDE 40MG TABLET PO SCH ×2 (08:14→21:01)
[2017-01-11] MEDS: ASPIRIN 325MG EC TABLET PO SCH (08:14)
[2017-01-11] MEDS: DOCUSATE SODIUM 100MG CAPSULE PO SCH ×3 (08:14→17:13)
[2017-01-11] MEDS: CARVEDILOL 12.5MG TABLET PO SCH ×2 (08:15→21:01)
[2017-01-11] MEDS: POTASSIUM CHLORIDE 10MEQ TABLET SR PO SCH (08:15)
[2017-01-11] MEDS: ENTRESTO PO SCH (08:16)
[2017-01-11] MEDS: ENOXAPARIN 30MG/0.3ML SYR SUBCUT SCH (08:16)
[2017-01-11] MEDS: TIMOLOL MALEATE 0.25% OPHTH DROPS 5ML EACHEYE SCH ×3 (08:26→21:02)
[2017-01-11] MEDS: INSULIN LISPRO 100 UNITS/ML SUBCUT SCH ×3 (08:28→17:00)
[2017-01-11] MEDS: INSULIN LISPRO (LOW DOSE) 100 UNITS/ML SUBCUT SCH (17:00)
[2017-01-11] MEDS ORDERED: INSULIN LISPRO 100 UNITS/ML SUBCUT SCH (17:00)
[2017-01-11] MEDS: FERROUS SULFATE 325MG TABLET PO SCH (17:13)
[2017-01-11 18:40] LABS: CLARITY URINE CLEAR (CLEAR); COLOR URINE YELLOW (YELLOW); GLUCOSE URINE NEGATIVE (NEGATIVE); KETONES URINE NEGATIVE (NEGATIVE); LEUKOCYTE ESTERASE URINE 1+ (NEGATIVE); NITRITE URINE NEGATIVE (NEGATIVE); OCCULT BLOOD URINE NEGATIVE (NEGATIVE); PROTEIN URINE NEGATIVE (NEGATIVE); SPECIFIC GRAVITY URINE 1.007 (1.005-1.030)
[2017-01-11 20:00] VITALS: BP 137/59
[2017-01-11] MEDS: POLYETHYLENE GLYCOL 3350 (17GM) 1 DOSE PACK PO SCH (21:00)
[2017-01-11] MEDS: TRAMADOL 50MG TABLET PO PRN (21:01)
[2017-01-11] MEDS: LATANOPROST 0.005% OPHTH DROPS 2.5ML BOTHEYE SCH (21:01)
[2017-01-11] MEDS ORDERED: INSULIN DETEMIR UD 100 UNITS/ML SYR SUBCUT SCH (22:00)
[2017-01-12] MEDS: BLOOD SUGAR DIAGNOSTIC STRIP TEST SCH ×4 (05:42→21:00)
[2017-01-12] MEDS: SODIUM CHLORIDE 0.9% INJ 3ML FLUSH IVF SCH ×3 (05:43→22:18)
[2017-01-12] MEDS: INSULIN LISPRO (LOW DOSE) 100 UNITS/ML SUBCUT SCH ×3 (06:44→18:24)
[2017-01-12] MEDS: INSULIN LISPRO 100 UNITS/ML SUBCUT SCH ×3 (06:44→18:24)
[2017-01-12 08:00] VITALS: BP 130/54
[2017-01-12] MEDS: CARVEDILOL 12.5MG TABLET PO SCH ×2 (09:00→22:19)
[2017-01-12] MEDS: ENOXAPARIN 30MG/0.3ML SYR SUBCUT SCH (09:00)
[2017-01-12] MEDS: FUROSEMIDE 40MG TABLET PO SCH ×2 (09:00→22:17)
[2017-01-12] MEDS: DOCUSATE SODIUM 100MG CAPSULE PO SCH ×2 (09:01→16:49)
[2017-01-12] MEDS: FERROUS SULFATE 325MG TABLET PO SCH ×3 (09:01→16:49)
[2017-01-12] MEDS: POTASSIUM CHLORIDE 10MEQ TABLET SR PO SCH (09:01)
[2017-01-12] MEDS: ASPIRIN 325MG EC TABLET PO SCH (09:01)
[2017-01-12] MEDS: ENTRESTO PO SCH (09:02)
[2017-01-12] MEDS: TIMOLOL MALEATE 0.25% OPHTH DROPS 5ML EACHEYE SCH ×2 (09:12→21:00)
[2017-01-12] MEDS: IPRATROPIUM/ALBUTEROL 0.5-3(2.5)MG/3ML NEB HHN SCH ×4 (10:01→21:14)
[2017-01-12 20:00] VITALS: BP 139/64
[2017-01-12] MEDS: POLYETHYLENE GLYCOL 3350 (17GM) 1 DOSE PACK PO SCH (22:16)
[2017-01-12] MEDS: INSULIN DETEMIR UD 100 UNITS/ML SYR SUBCUT SCH (22:22)
[2017-01-12] MEDS: LATANOPROST 0.005% OPHTH DROPS 2.5ML BOTHEYE SCH (22:23)
[2017-01-13] MEDS: TRAMADOL 50MG TABLET PO PRN (03:58)
[2017-01-13] MEDS: BLOOD SUGAR DIAGNOSTIC STRIP TEST SCH ×4 (06:19→21:29)
[2017-01-13] MEDS: INSULIN LISPRO (LOW DOSE) 100 UNITS/ML SUBCUT SCH ×3 (06:30→17:43)
[2017-01-13] MEDS: SODIUM CHLORIDE 0.9% INJ 3ML FLUSH IVF SCH (06:31)
[2017-01-13] MEDS: INSULIN LISPRO 100 UNITS/ML SUBCUT SCH ×3 (06:34→17:43)
[2017-01-13 08:00] VITALS: BP 139/59
[2017-01-13] MEDS: DOCUSATE SODIUM 100MG CAPSULE PO SCH ×2 (09:19→17:41)
[2017-01-13] MEDS: FUROSEMIDE 40MG TABLET PO SCH ×2 (09:19→21:29)
[2017-01-13] MEDS: POTASSIUM CHLORIDE 10MEQ TABLET SR PO SCH (09:19)
[2017-01-13] MEDS: CARVEDILOL 12.5MG TABLET PO SCH ×2 (09:19→21:29)
[2017-01-13] MEDS: ENOXAPARIN 30MG/0.3ML SYR SUBCUT SCH (09:20)
[2017-01-13] MEDS: ENTRESTO PO SCH (09:20)
[2017-01-13] MEDS: TIMOLOL MALEATE 0.25% OPHTH DROPS 5ML EACHEYE SCH ×2 (09:20→21:00)
[2017-01-13] MEDS: FERROUS SULFATE 325MG TABLET PO SCH ×3 (09:20→17:41)
[2017-01-13] MEDS: ASPIRIN 325MG EC TABLET PO SCH (09:20)
[2017-01-13] MEDS: IPRATROPIUM/ALBUTEROL 0.5-3(2.5)MG/3ML NEB HHN SCH ×4 (09:26→22:55)
[2017-01-13 20:00] VITALS: BP 121/53
[2017-01-13] MEDS: POLYETHYLENE GLYCOL 3350 (17GM) 1 DOSE PACK PO SCH (21:29)
[2017-01-13] MEDS: LATANOPROST 0.005% OPHTH DROPS 2.5ML BOTHEYE SCH (21:30)
[2017-01-13] MEDS: INSULIN DETEMIR UD 100 UNITS/ML SYR SUBCUT SCH (21:34)
[2017-01-14] MEDS: BLOOD SUGAR DIAGNOSTIC STRIP TEST SCH ×4 (06:18→21:00)
[2017-01-14] MEDS: INSULIN LISPRO 100 UNITS/ML SUBCUT SCH ×3 (07:22→17:00)
[2017-01-14 07:35] LABS: BASOPHILS % 0.9 % (0.0-2.0); EOSINOPHILS % 3.1 % (0.0-5.0); HEMOGLOBIN. 9.8 g/dL (12.0-16.0); LYMPHOCYTES % 24.3 % (20.0-50.0); MEAN CORPUSCULAR HEMOGLOBIN 30.8 pg (28.0-32.0); MEAN CORPUSCULAR VOLUME 93.8 fL (81.0-99.0); MEAN PLATELET VOLUME 9.4 fl (7.4-10.4); MONOCYTES % 14.1 % (2.0-8.0); NEUTROPHILS % 57.6 % (40.0-76.0); PLATELET 164 x1000/uL (130-400); RED BLOOD CELL COUNT 3.19 mill/uL (4.2-5.4); RED CELL DISTRIBUTION WIDTH 14.9 % (11.6-14.6)
[2017-01-14] MEDS ORDERED: TRAMADOL 50MG TABLET PO PRN (07:45)
[2017-01-14] MEDS: IPRATROPIUM/ALBUTEROL 0.5-3(2.5)MG/3ML NEB HHN SCH ×4 (07:53→20:00)
[2017-01-14 08:00] VITALS: BP 120/58
[2017-01-14] MEDS: DOCUSATE SODIUM 100MG CAPSULE PO SCH ×2 (08:44→17:13)
[2017-01-14] MEDS: FUROSEMIDE 40MG TABLET PO SCH ×2 (08:44→22:31)
[2017-01-14] MEDS: LACTULOSE 20G/30ML UDC PO SCH ×3 (08:44→16:00)
[2017-01-14] MEDS: POTASSIUM CHLORIDE 10MEQ TABLET SR PO SCH (08:44)
[2017-01-14] MEDS: ASPIRIN 325MG EC TABLET PO SCH (08:44)
[2017-01-14] MEDS: FERROUS SULFATE 325MG TABLET PO SCH ×3 (08:44→17:13)
[2017-01-14] MEDS: CARVEDILOL 12.5MG TABLET PO SCH ×2 (08:45→22:31)
[2017-01-14] MEDS: ENOXAPARIN 30MG/0.3ML SYR SUBCUT SCH (08:45)
[2017-01-14] MEDS: INSULIN LISPRO (LOW DOSE) 100 UNITS/ML SUBCUT SCH ×3 (08:45→17:00)
[2017-01-14] MEDS: TIMOLOL MALEATE 0.25% OPHTH DROPS 5ML EACHEYE SCH ×2 (08:46→21:00)
[2017-01-14] MEDS: ENTRESTO PO SCH (08:48)
[2017-01-14 19:00] VITALS: BP 131/58
[2017-01-14 19:12] LABS: 25-HYDROXY VITAMIN D3 4.6 ng/mL (.)
[2017-01-14] MEDS: POLYETHYLENE GLYCOL 3350 (17GM) 1 DOSE PACK PO SCH (21:00)
[2017-01-14] MEDS: LATANOPROST 0.005% OPHTH DROPS 2.5ML BOTHEYE SCH (22:32)
[2017-01-14] MEDS: INSULIN DETEMIR UD 100 UNITS/ML SYR SUBCUT SCH (22:38)
[2017-01-15] MEDS: INSULIN LISPRO 100 UNITS/ML SUBCUT SCH ×3 (06:31→17:31)
[2017-01-15] MEDS: BLOOD SUGAR DIAGNOSTIC STRIP TEST SCH ×4 (06:31→21:00)
[2017-01-15 08:00] VITALS: BP 128/62
[2017-01-15] MEDS: TIMOLOL MALEATE 0.25% OPHTH DROPS 5ML EACHEYE SCH ×2 (08:25→21:59)
[2017-01-15] MEDS: DOCUSATE SODIUM 100MG CAPSULE PO SCH ×2 (08:25→17:28)
[2017-01-15] MEDS: POTASSIUM CHLORIDE 10MEQ TABLET SR PO SCH (08:26)
[2017-01-15] MEDS: ENTRESTO PO SCH (08:26)
[2017-01-15] MEDS: FERROUS SULFATE 325MG TABLET PO SCH ×3 (08:26→17:28)
[2017-01-15] MEDS: ASPIRIN 325MG EC TABLET PO SCH (08:26)
[2017-01-15] MEDS: FUROSEMIDE 40MG TABLET PO SCH ×2 (08:26→21:57)
[2017-01-15] MEDS: CARVEDILOL 12.5MG TABLET PO SCH ×2 (08:26→21:00)
[2017-01-15] MEDS: ENOXAPARIN 30MG/0.3ML SYR SUBCUT SCH (08:27)
[2017-01-15] MEDS: INSULIN LISPRO (LOW DOSE) 100 UNITS/ML SUBCUT SCH ×3 (08:32→17:00)
[2017-01-15] MEDS: IPRATROPIUM/ALBUTEROL 0.5-3(2.5)MG/3ML NEB HHN SCH ×3 (13:14→20:44)
[2017-01-15 20:00] VITALS: BP 111/54
[2017-01-15] MEDS: LATANOPROST 0.005% OPHTH DROPS 2.5ML BOTHEYE SCH (21:55)
[2017-01-15] MEDS: POLYETHYLENE GLYCOL 3350 (17GM) 1 DOSE PACK PO SCH (21:56)
[2017-01-15] MEDS: INSULIN DETEMIR UD 100 UNITS/ML SYR SUBCUT SCH (22:04)
[2017-01-16] MEDS: BLOOD SUGAR DIAGNOSTIC STRIP TEST SCH ×4 (06:51→21:00)
[2017-01-16] MEDS: INSULIN LISPRO (LOW DOSE) 100 UNITS/ML SUBCUT SCH ×3 (06:52→17:00)
[2017-01-16] MEDS: INSULIN LISPRO 100 UNITS/ML SUBCUT SCH ×3 (06:52→18:06)
[2017-01-16] MEDS: IPRATROPIUM/ALBUTEROL 0.5-3(2.5)MG/3ML NEB HHN SCH ×4 (07:36→21:19)
[2017-01-16 08:00] VITALS: BP 119/46
[2017-01-16] MEDS: DOCUSATE SODIUM 100MG CAPSULE PO SCH ×2 (09:43→18:04)
[2017-01-16] MEDS: POTASSIUM CHLORIDE 10MEQ TABLET SR PO SCH (09:43)
[2017-01-16] MEDS: FUROSEMIDE 40MG TABLET PO SCH ×2 (09:43→22:41)
[2017-01-16] MEDS: CARVEDILOL 12.5MG TABLET PO SCH ×2 (09:43→22:41)
[2017-01-16] MEDS: ASPIRIN 325MG EC TABLET PO SCH (09:43)
[2017-01-16] MEDS: FERROUS SULFATE 325MG TABLET PO SCH ×3 (09:43→18:04)
[2017-01-16] MEDS: ENTRESTO PO SCH (09:44)
[2017-01-16] MEDS: ENOXAPARIN 30MG/0.3ML SYR SUBCUT SCH (09:44)
[2017-01-16] MEDS: TIMOLOL MALEATE 0.25% OPHTH DROPS 5ML EACHEYE SCH ×2 (09:44→21:00)
[2017-01-16 20:00] VITALS: BP 119/56
[2017-01-16] MEDS: POLYETHYLENE GLYCOL 3350 (17GM) 1 DOSE PACK PO SCH (21:00)
[2017-01-16] MEDS: LATANOPROST 0.005% OPHTH DROPS 2.5ML BOTHEYE SCH (22:40)
[2017-01-16] MEDS: ZOLPIDEM TARTRATE 5MG TABLET PO PRN (22:41)
[2017-01-16] MEDS: INSULIN DETEMIR UD 100 UNITS/ML SYR SUBCUT SCH (22:49)
[2017-01-17] MEDS: INSULIN LISPRO 100 UNITS/ML SUBCUT SCH ×3 (05:47→18:17)
[2017-01-17] MEDS: BLOOD SUGAR DIAGNOSTIC STRIP TEST SCH ×4 (05:47→22:33)
[2017-01-17 06:56] LABS: BASOPHILS % 1.7 % (0.0-2.0); EOSINOPHILS % 3.9 % (0.0-5.0); HEMATOCRIT. 30.9 % (36.0-48.0); HEMOGLOBIN. 10.2 g/dL (12.0-16.0); LYMPHOCYTES % 22.4 % (20.0-50.0); MEAN CORPUSCULAR HEMOGLOBIN 31.1 pg (28.0-32.0); MEAN CORPUSCULAR VOLUME 93.8 fL (81.0-99.0); MONOCYTES % 11.4 % (2.0-8.0); NEUTROPHILS % 60.6 % (40.0-76.0); PLATELET 161 x1000/uL (130-400); RED BLOOD CELL COUNT 3.29 mill/uL (4.2-5.4); RED CELL DISTRIBUTION WIDTH 14.5 % (11.6-14.6)
[2017-01-17 08:00] VITALS: BP 134/83
[2017-01-17] MEDS: INSULIN LISPRO (LOW DOSE) 100 UNITS/ML SUBCUT SCH ×3 (09:00→17:00)
[2017-01-17] MEDS: IPRATROPIUM/ALBUTEROL 0.5-3(2.5)MG/3ML NEB HHN SCH ×4 (09:24→20:48)
[2017-01-17] MEDS: CARVEDILOL 12.5MG TABLET PO SCH ×2 (09:38→22:25)
[2017-01-17] MEDS: DOCUSATE SODIUM 100MG CAPSULE PO SCH ×2 (09:38→18:14)
[2017-01-17] MEDS: FERROUS SULFATE 325MG TABLET PO SCH ×3 (09:38→18:14)
[2017-01-17] MEDS: FUROSEMIDE 40MG TABLET PO SCH ×2 (09:38→22:25)
[2017-01-17] MEDS: POTASSIUM CHLORIDE 10MEQ TABLET SR PO SCH (09:38)
[2017-01-17] MEDS: ENOXAPARIN 30MG/0.3ML SYR SUBCUT SCH (09:38)
[2017-01-17] MEDS: ASPIRIN 325MG EC TABLET PO SCH (09:38)
[2017-01-17] MEDS: TIMOLOL MALEATE 0.25% OPHTH DROPS 5ML EACHEYE SCH ×2 (09:39→21:00)
[2017-01-17] MEDS: ENTRESTO PO SCH (09:39)
[2017-01-17 20:00] VITALS: BP 121/53
[2017-01-17] MEDS: POLYETHYLENE GLYCOL 3350 (17GM) 1 DOSE PACK PO SCH (21:00)
[2017-01-17] MEDS ORDERED: PANTOPRAZOLE 40MG DR TABLET PO SCH (21:30)
[2017-01-17] MEDS: LATANOPROST 0.005% OPHTH DROPS 2.5ML BOTHEYE SCH (22:26)
[2017-01-17] MEDS: ZOLPIDEM TARTRATE 5MG TABLET PO PRN (22:46)
[2017-01-18] MEDS: BLOOD SUGAR DIAGNOSTIC STRIP TEST SCH ×2 (07:18→10:59)
[2017-01-18] MEDS: INSULIN LISPRO 100 UNITS/ML SUBCUT SCH ×2 (07:30→12:31)
[2017-01-18 08:00] VITALS: BP 121/56
[2017-01-18] MEDS: TIMOLOL MALEATE 0.25% OPHTH DROPS 5ML EACHEYE SCH (08:27)
[2017-01-18] MEDS: ENTRESTO PO SCH (08:27)
[2017-01-18] MEDS: DOCUSATE SODIUM 100MG CAPSULE PO SCH (08:28)
[2017-01-18] MEDS: POTASSIUM CHLORIDE 10MEQ TABLET SR PO SCH (08:28)
[2017-01-18] MEDS: ASPIRIN 325MG EC TABLET PO SCH (08:28)
[2017-01-18] MEDS: ENOXAPARIN 30MG/0.3ML SYR SUBCUT SCH (08:28)
[2017-01-18] MEDS: FUROSEMIDE 40MG TABLET PO SCH (08:28)
[2017-01-18] MEDS: FERROUS SULFATE 325MG TABLET PO SCH ×2 (08:28→12:28)
[2017-01-18] MEDS: CARVEDILOL 12.5MG TABLET PO SCH (08:29)
[2017-01-18] MEDS: INSULIN LISPRO (LOW DOSE) 100 UNITS/ML SUBCUT SCH ×2 (08:42→12:32)
[2017-01-18] MEDS: IPRATROPIUM/ALBUTEROL 0.5-3(2.5)MG/3ML NEB HHN SCH ×2 (09:39→13:00)
[2017-01-18 13:08] VITALS: BP 121/56
== END 2017-01-18 13:45 | disposition home health service (06) | DRG 291 ==
LOC: INTOOBSV 14:45 → OBSVTOIN 14:45
PROVIDERS: ADMIT Physical Medicine & Rehabilitation Spinal Cord Injury Medicine; ATTEND Physical Medicine & Rehabilitation Spinal Cord Injury Medicine
DX: I13.0 Hypertensive heart and chronic kidney disease with heart failure and stage 1 through stage 4 chronic kidney disease, or unspecified chronic kidney disease (principal); I50.43 Acute on chronic combined systolic (congestive) and diastolic (congestive) heart failure; J96.01 Acute respiratory failure with hypoxia; E46 Unspecified protein-calorie malnutrition; J44.1 Chronic obstructive pulmonary disease with (acute) exacerbation; E11.22 Type 2 diabetes mellitus with diabetic chronic kidney disease; E11.649 Type 2 diabetes mellitus with hypoglycemia without coma; I42.0 Dilated cardiomyopathy; K22.70 Barrett's esophagus without dysplasia; K21.9 Gastro-esophageal reflux disease without esophagitis; E61.1 Iron deficiency; I27.2 Other secondary pulmonary hypertension; K31.7 Polyp of stomach and duodenum; M47.812 Spondylosis without myelopathy or radiculopathy, cervical region; E11.319 Type 2 diabetes mellitus with unspecified diabetic retinopathy without macular edema; M54.10 Radiculopathy, site unspecified; N18.3 Chronic kidney disease, stage 3 (moderate); H26.9 Unspecified cataract; I65.29 Occlusion and stenosis of unspecified carotid artery; H40.9 Unspecified glaucoma; D64.9 Anemia, unspecified; R26.9 Unspecified abnormalities of gait and mobility; R20.8 Other disturbances of skin sensation; K57.90 Diverticulosis of intestine, part unspecified, without perforation or abscess without bleeding; Z95.810 Presence of automatic (implantable) cardiac defibrillator; Z83.3 Family history of diabetes mellitus; Z82.49 Family history of ischemic heart disease and other diseases of the circulatory system; Z79.4 Long term (current) use of insulin; Z68.25 Body mass index [BMI] 25.0-25.9, adult
CPT/HCPCS: 36415; 71010; 72125; 73060; 73090; 80048; 80053; 80061; 81001; 82270; 82306; 82607; 82728; 82746; 82962; 83036; 83540; 83550; 83735; 84100; 84134; 84443; 84630; 85025; 87086; 93970; 93971; 94640; 97110; 97112; 97116; 97162; 97166; 97530; 97535; A6261; J1650; J1815; J7620; Q0163

== ENCOUNTER → 2017-02-19 | Outpatient (CLI) | payer MEDICARE, OTHER ==
[~2017-02-19] MED LIST changes: -SACU1TAB PO
[2017-02-19 13:55] LABS: BASOPHILS % 0.9 % (0.0-2.0); EOSINOPHILS % 4.5 % (0.0-5.0); HEMATOCRIT. 34.3 % (36.0-48.0); HEMOGLOBIN. 11.4 g/dL (12.0-16.0); LYMPHOCYTES % 23.8 % (20.0-50.0); MEAN CORPUSCULAR HEMOGLOBIN 31.3 pg (28.0-32.0); MEAN CORPUSCULAR VOLUME 93.7 fL (81.0-99.0); MEAN PLATELET VOLUME 8.3 fl (7.4-10.4); MONOCYTES % 12.3 % (2.0-8.0); NEUTROPHILS % 58.5 % (40.0-76.0); PLATELET 198 x1000/uL (130-400); RED BLOOD CELL COUNT 3.66 mill/uL (4.2-5.4); RED CELL DISTRIBUTION WIDTH 14.5 % (11.6-14.6)
== END | disposition home or self-care (01) ==
LOC: LAB 13:03
PROVIDERS: ATTEND Internal Medicine Clinical Cardiac Electrophysiology
DX: I50.22 Chronic systolic (congestive) heart failure (principal); I43 Cardiomyopathy in diseases classified elsewhere; I42.0 Dilated cardiomyopathy; I44.7 Left bundle-branch block, unspecified
CPT/HCPCS: 36415; 80048; 83880; 85025

== ENCOUNTER 2017-03-29 10:47 | Inpatient (IN) | payer MEDICARE, OTHER ==
[~2017-03-29] VITALS: Ht 167.6 cm; Wt 68.0 kg
[2017-03-29 11:24] LABS: BASOPHILS % 1.2 % (0.0-2.0); EOSINOPHILS % 6.2 % (0.0-5.0); HEMATOCRIT. 33.6 % (36.0-48.0); HEMOGLOBIN. 11.2 g/dL (12.0-16.0); LYMPHOCYTES % 20.2 % (20.0-50.0); MEAN CORPUSCULAR HEMOGLOBIN 30.8 pg (28.0-32.0); MEAN CORPUSCULAR VOLUME 92.4 fL (81.0-99.0); MEAN PLATELET VOLUME 9.2 fl (7.4-10.4); MONOCYTES % 12.5 % (2.0-8.0); NEUTROPHILS % 59.9 % (40.0-76.0); PLATELET 181 x1000/uL (130-400); RED BLOOD CELL COUNT 3.63 mill/uL (4.2-5.4); RED CELL DISTRIBUTION WIDTH 14.1 % (11.6-14.6)
[2017-03-29 11:28] LABS: INR 1.4; PROTHROMBIN TIME 14.5 sec (9.4-11.6)
[2017-03-29 11:38] LABS: CARBON DIOXIDE 24 mEq/L (21-32); CHLORIDE 97 mEq/L (98-107)
[2017-03-29] MEDS ORDERED: CARVEDILOL 6.25 MG TABLET PO SCH ×2 (14:30→21:00)
[2017-03-29] MEDS ORDERED: PANTOPRAZOLE SODIUM 40 MG/VIAL IV SCH (14:30)
[2017-03-29] MEDS ORDERED: FUROSEMIDE 40MG/4ML VIAL IV SCH (14:30)
[2017-03-29] MEDS ORDERED: ASPIRIN 81MG TABLET PO SCH (14:30)
[2017-03-29 17:55] LABS: BG BASE EXCESS -0.5 mmol/L (-2.0-2.0); BG DEOXYHEMOGLOBIN 2.6 % (0.0-5.0); BG FRACTION INSPIRED OXYGEN 28; BG HCO3 ACT 23.2 mmol/L (22.0-26.0); BG METHEMOGLOBIN 0.1 % (0.0-1.5); BG OXYGEN SATURATION 97.4 % (92.0-98.5); BG OXYHEMOGLOBIN 96.3 % (94.0-97.0); BG PCO2 35.2 mmHg (35.0-45.0); BG PH 7.437 (7.350-7.450); BG PO2 97.5 mmHg (75.0-100.0); BG SAMPLE SITE RIGHT BRACHIAL; BG TOTAL HEMOGLOBIN 12.2 g/dL (12.0-18.0); BG VENT MODE NASAL CANNULA
[2017-03-29] MEDS ORDERED: HYDRALAZINE HCL 25MG TABLET PO SCH (22:00)
[2017-03-29 22:10] VITALS: BP 142/71
[2017-03-29 23:14] VITALS: BP 142/71
[2017-03-29] MEDS: ENOXAPARIN 30MG/0.3ML SYR SUBCUT SCH (23:46)
[2017-03-30] VITALS: BP 122/59
[2017-03-30] MEDS ORDERED: IBUPROFEN 600MG TABLET PO PRN (00:15)
[2017-03-30] MEDS ORDERED: DEXTROSE 50% WATER 50ML SYRINGE IV PRN (00:15)
[2017-03-30 04:00] VITALS: BP 113/64
[2017-03-30] MEDS: INSULIN LISPRO 100 UNITS/ML SUBCUT SCH ×4 (06:21→21:09)
[2017-03-30] MEDS: BLOOD SUGAR DIAGNOSTIC STRIP TEST SCH ×4 (06:21→21:00)
[2017-03-30 08:00] VITALS: BP 124/73
[2017-03-30] MEDS: IPRATROPIUM/ALBUTEROL 0.5-3(2.5)MG/3ML NEB HHN SCH ×4 (08:56→21:58)
[2017-03-30 09:00] LABS: BASOPHILS % 1.1 % (0.0-2.0); EOSINOPHILS % 5.7 % (0.0-5.0); HEMATOCRIT. 33.7 % (36.0-48.0); HEMOGLOBIN. 11.3 g/dL (12.0-16.0); LYMPHOCYTES % 22.9 % (20.0-50.0); MEAN CORPUSCULAR HEMOGLOBIN 30.9 pg (28.0-32.0); MEAN CORPUSCULAR VOLUME 92.2 fL (81.0-99.0); MEAN PLATELET VOLUME 9.4 fl (7.4-10.4); NEUTROPHILS % 59.3 % (40.0-76.0); PLATELET 176 x1000/uL (130-400); RED BLOOD CELL COUNT 3.66 mill/uL (4.2-5.4)
[2017-03-30 09:35] LABS: CHLORIDE 97 mEq/L (98-107)
[2017-03-30 09:47] LABS: CARBON DIOXIDE 24 mEq/L (21-32); HDL CHOLESTEROL 37 mg/dL (40-59); LDL CHOLESTEROL 73 mg/dL (5-100)
[2017-03-30] MEDS: PANTOPRAZOLE SODIUM 40 MG/VIAL IV SCH (09:51)
[2017-03-30] MEDS: FUROSEMIDE 40MG/4ML VIAL IVP SCH (09:52)
[2017-03-30] MEDS: CARVEDILOL 12.5MG TABLET PO SCH (09:53)
[2017-03-30] MEDS: ASPIRIN 325MG EC TABLET PO SCH (09:54)
[2017-03-30 12:00] VITALS: BP 124/67
[2017-03-30] MEDS: ISOSORB DINIT/HYDRALAZINE HCL 20/37.5MG TABLET PO SCH ×2 (14:23→22:49)
[2017-03-30 16:00] VITALS: BP 115/60
[2017-03-30 20:00] VITALS: BP 122/62
[2017-03-30] MEDS: ZOLPIDEM TARTRATE 5MG TABLET PO PRN (21:07)
[2017-03-30] MEDS: ENOXAPARIN 30MG/0.3ML SYR SUBCUT SCH (22:48)
[2017-03-31] VITALS: BP 108/50
[2017-03-31 04:00] VITALS: BP 109/59
[2017-03-31] MEDS: ISOSORB DINIT/HYDRALAZINE HCL 20/37.5MG TABLET PO SCH ×3 (05:50→21:44)
[2017-03-31] MEDS: BLOOD SUGAR DIAGNOSTIC STRIP TEST SCH ×4 (06:19→20:24)
[2017-03-31] MEDS: INSULIN LISPRO 100 UNITS/ML SUBCUT SCH ×4 (06:19→20:24)
[2017-03-31] MEDS: IPRATROPIUM/ALBUTEROL 0.5-3(2.5)MG/3ML NEB HHN SCH ×4 (07:49→20:13)
[2017-03-31 08:00] VITALS: BP 127/68
[2017-03-31] MEDS: ASPIRIN 325MG EC TABLET PO SCH (08:54)
[2017-03-31] MEDS: FUROSEMIDE 40MG/4ML VIAL IVP SCH (08:54)
[2017-03-31] MEDS: PANTOPRAZOLE SODIUM 40 MG/VIAL IV SCH (08:54)
[2017-03-31] MEDS: CARVEDILOL 12.5MG TABLET PO SCH (08:54)
[2017-03-31 12:00] VITALS: BP 113/54
[2017-03-31 16:00] VITALS: BP 118/67
[2017-03-31 21:01] VITALS: BP 121/63
[2017-03-31] MEDS: ZOLPIDEM TARTRATE 5MG TABLET PO PRN (22:07)
[2017-03-31] MEDS: ENOXAPARIN 30MG/0.3ML SYR SUBCUT SCH (22:07)
[2017-04-01] VITALS: BP 116/51
[2017-04-01 04:00] VITALS: BP 123/67
[2017-04-01] MEDS: ISOSORB DINIT/HYDRALAZINE HCL 20/37.5MG TABLET PO SCH ×3 (05:21→22:20)
[2017-04-01] MEDS: BLOOD SUGAR DIAGNOSTIC STRIP TEST SCH ×4 (06:10→20:38)
[2017-04-01] MEDS: INSULIN LISPRO 100 UNITS/ML SUBCUT SCH ×4 (06:11→20:51)
[2017-04-01 08:00] VITALS: BP 120/67
[2017-04-01] MEDS: IPRATROPIUM/ALBUTEROL 0.5-3(2.5)MG/3ML NEB HHN SCH ×4 (08:08→21:32)
[2017-04-01] MEDS: CARVEDILOL 12.5MG TABLET PO SCH (09:43)
[2017-04-01] MEDS: ASPIRIN 325MG EC TABLET PO SCH (09:43)
[2017-04-01] MEDS: FUROSEMIDE 40MG/4ML VIAL IVP SCH (09:43)
[2017-04-01] MEDS: PANTOPRAZOLE SODIUM 40 MG/VIAL IV SCH (09:43)
[2017-04-01 12:00] VITALS: BP 116/61
[2017-04-01 16:00] VITALS: BP 117/63
[2017-04-01 20:00] VITALS: BP 116/53
[2017-04-01] MEDS: ZOLPIDEM TARTRATE 5MG TABLET PO PRN (22:21)
[2017-04-01] MEDS: ENOXAPARIN 30MG/0.3ML SYR SUBCUT SCH (22:21)
[2017-04-02] VITALS: BP 109/56
[2017-04-02 04:00] VITALS: BP 122/57
[2017-04-02] MEDS: ISOSORB DINIT/HYDRALAZINE HCL 20/37.5MG TABLET PO SCH ×3 (05:50→22:00)
[2017-04-02] MEDS: INSULIN LISPRO 100 UNITS/ML SUBCUT SCH ×4 (06:15→21:07)
[2017-04-02] MEDS: BLOOD SUGAR DIAGNOSTIC STRIP TEST SCH ×4 (06:15→20:59)
[2017-04-02] MEDS: IPRATROPIUM/ALBUTEROL 0.5-3(2.5)MG/3ML NEB HHN SCH ×4 (07:32→20:28)
[2017-04-02 08:00] VITALS: BP 135/82
[2017-04-02] MEDS: PANTOPRAZOLE SODIUM 40 MG/VIAL IV SCH (09:43)
[2017-04-02] MEDS: CARVEDILOL 12.5MG TABLET PO SCH (09:43)
[2017-04-02] MEDS: FUROSEMIDE 40MG/4ML VIAL IVP SCH (09:43)
[2017-04-02] MEDS: ASPIRIN 325MG EC TABLET PO SCH (09:44)
[2017-04-02 20:00] VITALS: BP 108/41
[2017-04-02] MEDS: ENOXAPARIN 30MG/0.3ML SYR SUBCUT SCH (23:36)
[2017-04-02] MEDS: ZOLPIDEM TARTRATE 5MG TABLET PO PRN (23:40)
[2017-04-03] VITALS: BP 2/110
[2017-04-03 04:00] VITALS: BP 118/63
[2017-04-03] MEDS: ISOSORB DINIT/HYDRALAZINE HCL 20/37.5MG TABLET PO SCH ×2 (05:45→12:40)
[2017-04-03] MEDS: BLOOD SUGAR DIAGNOSTIC STRIP TEST SCH ×3 (07:10→16:16)
[2017-04-03] MEDS: IPRATROPIUM/ALBUTEROL 0.5-3(2.5)MG/3ML NEB HHN SCH ×2 (07:30→15:08)
[2017-04-03] MEDS: INSULIN LISPRO 100 UNITS/ML SUBCUT SCH ×3 (07:34→16:16)
[2017-04-03 07:46] VITALS: BP 111/52
[2017-04-03] MEDS: CARVEDILOL 12.5MG TABLET PO SCH (08:32)
[2017-04-03] MEDS: FUROSEMIDE 40MG/4ML VIAL IVP SCH (08:32)
[2017-04-03] MEDS: ASPIRIN 325MG EC TABLET PO SCH (08:33)
[2017-04-03] MEDS ORDERED: FAMOTIDINE 20MG TABLET PO SCH (09:00)
[2017-04-03 11:43] VITALS: BP 109/54
[2017-04-03 16:09] VITALS: BP 120/54
[2017-04-03 17:24] VITALS: BP 140/70
== END 2017-04-03 18:42 | DRG 291 ==
LOC: ER 10:47 → 8WST 13:05 → ENRESERV 18:44
PROVIDERS: ADMIT Specialist; ATTEND Specialist
DX: I13.0 Hypertensive heart and chronic kidney disease with heart failure and stage 1 through stage 4 chronic kidney disease, or unspecified chronic kidney disease (principal); I50.43 Acute on chronic combined systolic (congestive) and diastolic (congestive) heart failure; J96.20 Acute and chronic respiratory failure, unspecified whether with hypoxia or hypercapnia; E11.22 Type 2 diabetes mellitus with diabetic chronic kidney disease; J44.1 Chronic obstructive pulmonary disease with (acute) exacerbation; E87.1 Hypo-osmolality and hyponatremia; N18.4 Chronic kidney disease, stage 4 (severe); E87.5 Hyperkalemia; R62.7 Adult failure to thrive; I42.9 Cardiomyopathy, unspecified; E78.5 Hyperlipidemia, unspecified; Z95.810 Presence of automatic (implantable) cardiac defibrillator; Z79.899 Other long term (current) drug therapy; Z88.0 Allergy status to penicillin; Z88.5 Allergy status to narcotic agent; Z88.9 Allergy status to unspecified drugs, medicaments and biological substances; Z79.82 Long term (current) use of aspirin
CPT/HCPCS: 36415; 36600; 71010; 80048; 80053; 80061; 82375; 82805; 82962; 83036; 83880; 84484; 85025; 85610; 93005; 93306; 94640; 96374; 96375; 97116; 97162; 97166; 97530; 97535; 99285; C9113; J1650; J1815; J1940; J7620

== ENCOUNTER 2017-04-03 18:42 | Inpatient (IN) | payer MEDICARE, OTHER ==
[~2017-04-03] VITALS: Ht 167.6 cm; Wt 68.0 kg
[2017-04-03] MEDS: IPRATROPIUM/ALBUTEROL 0.5-3(2.5)MG/3ML NEB HHN SCH (00:15)
[2017-04-03 19:00] VITALS: BP 133/61
[2017-04-03 20:00] VITALS: BP 133/61
[2017-04-03] MEDS: INSULIN LISPRO 100 UNITS/ML SUBCUT SCH (21:00)
[2017-04-03] MEDS: BLOOD SUGAR DIAGNOSTIC STRIP TEST SCH (21:00)
[2017-04-03] MEDS ORDERED: IBUPROFEN 600MG TABLET PO PRN (21:00)
[2017-04-03] MEDS ORDERED: DEXTROSE 50% WATER 50ML SYRINGE IV PRN (21:00)
[2017-04-03] MEDS: CARVEDILOL 12.5MG TABLET PO SCH (22:00)
[2017-04-03] MEDS: ISOSORB DINIT/HYDRALAZINE HCL 20/37.5MG TABLET PO SCH (22:12)
[2017-04-04] MEDS: IPRATROPIUM/ALBUTEROL 0.5-3(2.5)MG/3ML NEB HHN SCH ×6 (04:00→21:14)
[2017-04-04] MEDS: ISOSORB DINIT/HYDRALAZINE HCL 20/37.5MG TABLET PO SCH ×3 (06:00→21:37)
[2017-04-04] MEDS: BLOOD SUGAR DIAGNOSTIC STRIP TEST SCH ×4 (06:10→21:26)
[2017-04-04] MEDS: INSULIN LISPRO 100 UNITS/ML SUBCUT SCH ×4 (06:11→21:00)
[2017-04-04 07:10] LABS: BASOPHILS % 0.8 % (0.0-2.0); EOSINOPHILS % 7.4 % (0.0-5.0); HEMOGLOBIN. 10.5 g/dL (12.0-16.0); MEAN CORPUSCULAR HEMOGLOBIN 31.1 pg (28.0-32.0); MEAN PLATELET VOLUME 9.7 fl (7.4-10.4); MONOCYTES % 12.4 % (2.0-8.0); NEUTROPHILS % 60.4 % (40.0-76.0); PLATELET 154 x1000/uL (130-400); RED BLOOD CELL COUNT 3.37 mill/uL (4.2-5.4)
[2017-04-04 07:40] LABS: CHLORIDE 97 mEq/L (98-107)
[2017-04-04 08:00] VITALS: BP 120/55
[2017-04-04 08:10] LABS: CARBON DIOXIDE 25 mEq/L (21-32)
[2017-04-04] MEDS ORDERED: FUROSEMIDE 20MG TABLET PO SCH (09:00)
[2017-04-04] MEDS: CARVEDILOL 12.5MG TABLET PO SCH ×2 (09:00→21:00)
[2017-04-04] MEDS: FUROSEMIDE 40MG TABLET PO SCH (11:27)
[2017-04-04] MEDS: LEVOFLOXACIN 250MG TABLET PO SCH (11:27)
[2017-04-04] MEDS: ASPIRIN 325MG EC TABLET PO SCH (11:27)
[2017-04-04] MEDS: FAMOTIDINE 20MG TABLET PO SCH (11:27)
[2017-04-04] MEDS: ENOXAPARIN 30MG/0.3ML SYR SUBCUT SCH (11:30)
[2017-04-04 20:00] VITALS: BP 115/57
[2017-04-04] MEDS: TOUJEO 300 UNIT/ML SUBCUT SCH (21:00)
[2017-04-04] MEDS: ZOLPIDEM TARTRATE 5MG TABLET PO PRN (21:26)
[2017-04-05 00:07] LABS: CLARITY URINE TURBID (CLEAR); COLOR URINE YELLOW (YELLOW); KETONES URINE NEGATIVE (NEGATIVE); LEUKOCYTE ESTERASE URINE 3+ (NEGATIVE); NITRITE URINE NEGATIVE (NEGATIVE); OCCULT BLOOD URINE 3+ (NEGATIVE); PH URINE 5.5 (4.5-8.0); PROTEIN URINE 2+ (NEGATIVE); SPECIFIC GRAVITY URINE 1.014 (1.005-1.030)
[2017-04-05] MEDS: IPRATROPIUM/ALBUTEROL 0.5-3(2.5)MG/3ML NEB HHN SCH ×5 (04:00→16:10)
[2017-04-05] MEDS: ISOSORB DINIT/HYDRALAZINE HCL 20/37.5MG TABLET PO SCH ×3 (06:00→21:37)
[2017-04-05] MEDS: INSULIN LISPRO 100 UNITS/ML SUBCUT SCH ×4 (06:38→21:36)
[2017-04-05] MEDS: BLOOD SUGAR DIAGNOSTIC STRIP TEST SCH ×4 (06:38→21:21)
[2017-04-05 08:00] VITALS: BP 119/60
[2017-04-05] MEDS: CARVEDILOL 12.5MG TABLET PO SCH ×2 (09:00→21:00)
[2017-04-05] MEDS: ASPIRIN 325MG EC TABLET PO SCH (09:14)
[2017-04-05] MEDS: FUROSEMIDE 40MG TABLET PO SCH (09:14)
[2017-04-05] MEDS: FAMOTIDINE 20MG TABLET PO SCH (09:14)
[2017-04-05] MEDS: ENOXAPARIN 30MG/0.3ML SYR SUBCUT SCH (09:15)
[2017-04-05] MEDS: LEVOFLOXACIN 250MG TABLET PO SCH (11:17)
[2017-04-05 20:00] VITALS: BP 108/55
[2017-04-05] MEDS: ZOLPIDEM TARTRATE 5MG TABLET PO PRN (21:28)
[2017-04-05] MEDS: TOUJEO 300 UNIT/ML SUBCUT SCH (21:28)
[2017-04-06] MEDS: ISOSORB DINIT/HYDRALAZINE HCL 20/37.5MG TABLET PO SCH ×3 (06:00→21:47)
[2017-04-06] MEDS: BLOOD SUGAR DIAGNOSTIC STRIP TEST SCH ×4 (06:30→20:54)
[2017-04-06 07:13] LABS: BASOPHILS % 0.7 % (0.0-2.0); EOSINOPHILS % 5.5 % (0.0-5.0); HEMATOCRIT. 30.9 % (36.0-48.0); HEMOGLOBIN. 10.1 g/dL (12.0-16.0); LYMPHOCYTES % 15.4 % (20.0-50.0); MEAN CORPUSCULAR HEMOGLOBIN 30.1 pg (28.0-32.0); MEAN CORPUSCULAR VOLUME 91.9 fL (81.0-99.0); MEAN PLATELET VOLUME 9.6 fl (7.4-10.4); MONOCYTES % 10.2 % (2.0-8.0); NEUTROPHILS % 68.2 % (40.0-76.0); PLATELET 146 x1000/uL (130-400); RED BLOOD CELL COUNT 3.36 mill/uL (4.2-5.4); RED CELL DISTRIBUTION WIDTH 14.1 % (11.6-14.6)
[2017-04-06] MEDS: INSULIN LISPRO 100 UNITS/ML SUBCUT SCH ×4 (07:54→20:55)
[2017-04-06 08:00] VITALS: BP 133/56
[2017-04-06] MEDS: CARVEDILOL 12.5MG TABLET PO SCH ×2 (09:00→20:52)
[2017-04-06] MEDS: IPRATROPIUM/ALBUTEROL 0.5-3(2.5)MG/3ML NEB HHN SCH ×4 (09:10→20:47)
[2017-04-06] MEDS: FUROSEMIDE 40MG TABLET PO SCH (09:20)
[2017-04-06] MEDS: FAMOTIDINE 20MG TABLET PO SCH (09:20)
[2017-04-06] MEDS: ASPIRIN 325MG EC TABLET PO SCH (09:20)
[2017-04-06] MEDS: ENOXAPARIN 30MG/0.3ML SYR SUBCUT SCH (09:21)
[2017-04-06] MEDS: LEVOFLOXACIN 250MG TABLET PO SCH (12:03)
[2017-04-06 20:00] VITALS: BP 119/55
[2017-04-06] MEDS: TOUJEO 300 UNIT/ML SUBCUT SCH (20:54)
[2017-04-06] MEDS: ZOLPIDEM TARTRATE 5MG TABLET PO PRN (21:51)
[2017-04-07] MEDS: IPRATROPIUM/ALBUTEROL 0.5-3(2.5)MG/3ML NEB HHN SCH ×6 (00:45→21:24)
[2017-04-07] MEDS: ISOSORB DINIT/HYDRALAZINE HCL 20/37.5MG TABLET PO SCH ×3 (06:00→22:00)
[2017-04-07] MEDS: BLOOD SUGAR DIAGNOSTIC STRIP TEST SCH ×4 (07:29→21:58)
[2017-04-07] MEDS: INSULIN LISPRO 100 UNITS/ML SUBCUT SCH ×4 (07:29→21:58)
[2017-04-07 08:00] VITALS: BP 119/52
[2017-04-07] MEDS: CARVEDILOL 12.5MG TABLET PO SCH ×2 (09:00→21:56)
[2017-04-07] MEDS: ASPIRIN 325MG EC TABLET PO SCH (09:05)
[2017-04-07] MEDS: FUROSEMIDE 40MG TABLET PO SCH (09:05)
[2017-04-07] MEDS: FAMOTIDINE 20MG TABLET PO SCH (09:06)
[2017-04-07] MEDS: ENOXAPARIN 30MG/0.3ML SYR SUBCUT SCH (09:06)
[2017-04-07] MEDS: LEVOFLOXACIN 250MG TABLET PO SCH (12:02)
[2017-04-07 20:15] VITALS: BP 120/64
[2017-04-07] MEDS: TOUJEO 300 UNIT/ML SUBCUT SCH (21:56)
[2017-04-07] MEDS: NITROFURANTOIN 100MG M/M CAPSULE PO SCH (21:57)
[2017-04-07] MEDS: ZOLPIDEM TARTRATE 5MG TABLET PO PRN (22:53)
[2017-04-08] MEDS: MEROPENEM 500MG in NORMAL SALINE 50ML IV SCH (02:20)
[2017-04-08] MEDS: IPRATROPIUM/ALBUTEROL 0.5-3(2.5)MG/3ML NEB HHN SCH ×7 (04:00→20:00)
[2017-04-08] MEDS: ISOSORB DINIT/HYDRALAZINE HCL 20/37.5MG TABLET PO SCH ×3 (06:00→20:49)
[2017-04-08] MEDS: BLOOD SUGAR DIAGNOSTIC STRIP TEST SCH ×4 (06:02→21:00)
[2017-04-08] MEDS: INSULIN LISPRO 100 UNITS/ML SUBCUT SCH ×4 (06:02→21:00)
[2017-04-08 08:00] VITALS: BP 118/65
[2017-04-08] MEDS: FAMOTIDINE 20MG TABLET PO SCH (08:49)
[2017-04-08] MEDS: FUROSEMIDE 40MG TABLET PO SCH (08:49)
[2017-04-08] MEDS: NITROFURANTOIN 100MG M/M CAPSULE PO SCH (08:49)
[2017-04-08] MEDS: ENOXAPARIN 30MG/0.3ML SYR SUBCUT SCH (08:49)
[2017-04-08] MEDS: ASPIRIN 325MG EC TABLET PO SCH (08:50)
[2017-04-08] MEDS: CARVEDILOL 12.5MG TABLET PO SCH ×2 (08:50→21:00)
[2017-04-08 20:00] VITALS: BP 128/74
[2017-04-08] MEDS: TOUJEO 300 UNIT/ML SUBCUT SCH (20:58)
[2017-04-08] MEDS: ZOLPIDEM TARTRATE 5MG TABLET PO PRN (22:17)
[2017-04-09] MEDS: IPRATROPIUM/ALBUTEROL 0.5-3(2.5)MG/3ML NEB HHN SCH ×6 (05:55→23:18)
[2017-04-09] MEDS: ISOSORB DINIT/HYDRALAZINE HCL 20/37.5MG TABLET PO SCH ×3 (06:00→21:26)
[2017-04-09] MEDS: BLOOD SUGAR DIAGNOSTIC STRIP TEST SCH ×4 (06:30→20:55)
[2017-04-09] MEDS: INSULIN LISPRO 100 UNITS/ML SUBCUT SCH ×4 (07:03→21:25)
[2017-04-09 08:00] VITALS: BP 122/70
[2017-04-09] MEDS: MEROPENEM 500MG in NORMAL SALINE 50ML IV SCH ×2 (08:27→20:48)
[2017-04-09] MEDS: FAMOTIDINE 20MG TABLET PO SCH (08:30)
[2017-04-09] MEDS: FUROSEMIDE 40MG TABLET PO SCH (08:30)
[2017-04-09] MEDS: ASPIRIN 325MG EC TABLET PO SCH (08:30)
[2017-04-09] MEDS: CARVEDILOL 12.5MG TABLET PO SCH ×2 (08:31→20:50)
[2017-04-09] MEDS: ENOXAPARIN 30MG/0.3ML SYR SUBCUT SCH (08:31)
[2017-04-09 20:00] VITALS: BP 103/54
[2017-04-09] MEDS: TOUJEO 300 UNIT/ML SUBCUT SCH (20:56)
[2017-04-09] MEDS: ZOLPIDEM TARTRATE 5MG TABLET PO PRN (22:01)
[2017-04-10] MEDS: IPRATROPIUM/ALBUTEROL 0.5-3(2.5)MG/3ML NEB HHN SCH ×5 (04:39→21:07)
[2017-04-10] MEDS: ISOSORB DINIT/HYDRALAZINE HCL 20/37.5MG TABLET PO SCH ×3 (05:48→22:00)
[2017-04-10] MEDS: BLOOD SUGAR DIAGNOSTIC STRIP TEST SCH ×4 (05:53→21:30)
[2017-04-10] MEDS: INSULIN LISPRO 100 UNITS/ML SUBCUT SCH ×4 (07:03→21:41)
[2017-04-10 07:14] LABS: BASOPHILS % 0.8 % (0.0-2.0); EOSINOPHILS % 5.4 % (0.0-5.0); HEMATOCRIT. 31.1 % (36.0-48.0); HEMOGLOBIN. 10.4 g/dL (12.0-16.0); MEAN CORPUSCULAR HEMOGLOBIN 30.8 pg (28.0-32.0); MEAN CORPUSCULAR VOLUME 92.6 fL (81.0-99.0); MEAN PLATELET VOLUME 10.1 fl (7.4-10.4); MONOCYTES % 14.4 % (2.0-8.0); NEUTROPHILS % 59.4 % (40.0-76.0); PLATELET 162 x1000/uL (130-400); RED BLOOD CELL COUNT 3.36 mill/uL (4.2-5.4); RED CELL DISTRIBUTION WIDTH 13.9 % (11.6-14.6)
[2017-04-10 08:00] VITALS: BP 115/59
[2017-04-10] MEDS: MEROPENEM 500MG in NORMAL SALINE 50ML IV SCH ×2 (10:37→21:30)
[2017-04-10] MEDS: ASPIRIN 325MG EC TABLET PO SCH (10:42)
[2017-04-10] MEDS: FAMOTIDINE 20MG TABLET PO SCH (10:42)
[2017-04-10] MEDS: FUROSEMIDE 40MG TABLET PO SCH (10:43)
[2017-04-10] MEDS: CARVEDILOL 12.5MG TABLET PO SCH ×2 (10:44→21:00)
[2017-04-10] MEDS: ENOXAPARIN 30MG/0.3ML SYR SUBCUT SCH (10:45)
[2017-04-10 20:00] VITALS: BP 107/47
[2017-04-10] MEDS ORDERED: SODIUM CHLORIDE 1000MG TABLET PO SCH (21:00)
[2017-04-10] MEDS: SODIUM CHLORIDE 1000MG TABLET PO SCH (21:31)
[2017-04-10] MEDS: TOUJEO 300 UNIT/ML SUBCUT SCH (21:41)
[2017-04-10] MEDS: ZOLPIDEM TARTRATE 5MG TABLET PO PRN (22:15)
[2017-04-11] MEDS: IPRATROPIUM/ALBUTEROL 0.5-3(2.5)MG/3ML NEB HHN SCH ×4 (04:50→11:47)
[2017-04-11] MEDS: ISOSORB DINIT/HYDRALAZINE HCL 20/37.5MG TABLET PO SCH (06:00)
[2017-04-11] MEDS: BLOOD SUGAR DIAGNOSTIC STRIP TEST SCH ×2 (06:40→12:14)
[2017-04-11] MEDS: INSULIN LISPRO 100 UNITS/ML SUBCUT SCH ×2 (06:41→12:14)
[2017-04-11 08:00] VITALS: BP 101/45
[2017-04-11] MEDS: CARVEDILOL 12.5MG TABLET PO SCH (09:00)
[2017-04-11] MEDS: MEROPENEM 500MG in NORMAL SALINE 50ML IV SCH (09:23)
[2017-04-11] MEDS: ASPIRIN 325MG EC TABLET PO SCH (09:24)
[2017-04-11] MEDS: FAMOTIDINE 20MG TABLET PO SCH (09:24)
[2017-04-11] MEDS: FUROSEMIDE 40MG TABLET PO SCH (09:24)
[2017-04-11] MEDS: ENOXAPARIN 30MG/0.3ML SYR SUBCUT SCH (09:24)
[2017-04-11] MEDS: SODIUM CHLORIDE 1000MG TABLET PO SCH (09:24)
[2017-04-11 12:00] VITALS: BP 103/55
[2017-04-11 12:24] VITALS: BP 103/55
== END 2017-04-11 13:45 | disposition home health service (06) | DRG 291 ==
PROVIDERS: ADMIT Psychiatry & Neurology Neurology; ATTEND Specialist
DX: I13.0 Hypertensive heart and chronic kidney disease with heart failure and stage 1 through stage 4 chronic kidney disease, or unspecified chronic kidney disease (principal); I50.43 Acute on chronic combined systolic (congestive) and diastolic (congestive) heart failure; E11.22 Type 2 diabetes mellitus with diabetic chronic kidney disease; N18.4 Chronic kidney disease, stage 4 (severe); E87.5 Hyperkalemia; E87.1 Hypo-osmolality and hyponatremia; N39.0 Urinary tract infection, site not specified; D64.9 Anemia, unspecified; R53.81 Other malaise; E78.5 Hyperlipidemia, unspecified; I25.5 Ischemic cardiomyopathy; J44.9 Chronic obstructive pulmonary disease, unspecified; B96.20 Unspecified Escherichia coli [E. coli] as the cause of diseases classified elsewhere; I25.10 Atherosclerotic heart disease of native coronary artery without angina pectoris; F06.31 Mood disorder due to known physiological condition with depressive features; F06.8 Other specified mental disorders due to known physiological condition; Z95.810 Presence of automatic (implantable) cardiac defibrillator; Z82.49 Family history of ischemic heart disease and other diseases of the circulatory system; Z86.73 Personal history of transient ischemic attack (TIA), and cerebral infarction without residual deficits; Z79.899 Other long term (current) drug therapy; Z79.82 Long term (current) use of aspirin; Z88.0 Allergy status to penicillin; Z88.8 Allergy status to other drugs, medicaments and biological substances; Z91.041 Radiographic dye allergy status
CPT/HCPCS: 36415; 80048; 80053; 80061; 81001; 81003; 82962; 85025; 87077; 87086; 87186; 93306; 93970; 94640; 94664; 97110; 97116; 97162; 97166; 97530; 97535; C1893; J1650; J1815; J2185; J7040; J7620